=== PATIENT | female | born 2000 | race Hispanic/Latino ===

== ENCOUNTER 2023-03-04 19:26 | Emergency (ER) | payer OTHER ==
--- OUTSIDE RECORDS SUMMARY | 2023-03-04 19:30 | XMS REPORT | Continuity of Care Document ---
:2000 Author Organization [facility] t Address [address] [facility] [address] [place] [address] Care Team Providers Name Role Phone ALFREDITO CASTLE Primary Care Physician Unavailable CATALINA WELLINGTON Attending Clinician Unavailable ELAINA ALEXANDER Attending Clinician Unavailable Catalina Wellington MD Attending Clinician Doctor Unassigned, [place] Attending Clinician Unavailable Lab, Ang - Db Attending Clinician Unavailable Benjamin BATCH OR CONTINUOUS STILL OPERATORElaina Smith Attending Clinician Pob, Adc Lab Main Attending Clinician Unavailable AL RICO Attending Clinician Unavailable Al Rico MD Attending Clinician ELDON GAVIN Attending Clinician Unavailable Eldon Childress Attending Clinician Wesley Smith Attending Clinician RAFAELA WEN Attending Clinician Unavailable CATALINA WELLINGTON Admitting Clinician Unavailable ELDON GAVIN Admitting Clinician Unavailable Payers Payer Name Policy Type Policy Number Effective Date Expiration Date [facility] [id number] 2014 CHOICE [place] STAR 00:00:00 Problems Condition Condition Condition Status Onset Resolution Last Treating Co mments Source Name Details Category Date Date Treatment Clinician Date Chronic Chronic Disease Active Univers migraine migraine 9-13 ity of without without 00:00: [place] aura with aura with 00 Medi lois status status Branch migrainosu migrainosu s, not s, not intractabl intractabl e e Paresthesi Paresthesi Disease Active U nivers a a 9-13 ity of 00:00: [place] [facility] Elevated Elevated Disease Active Unive rs blood blood - ity of pressure pressure 00:00: [place] reading in reading in 00 Mt dical office office Branch without without diagnosis diagnosis of of hypertensi hypertensi on on Encounter Encounter Disease Active Uni vers to to 02-04 [place] of establish establish [place] Irregular Irregular Disease Active Uni vers menstrual menstrual 7-21 ity of cycle cycle 00:00: [place] 00 Medical Branch Left ankle Left ankle Disease Active 2014-05 U nickie pain pain 0-20 ity of 00:00: [place] [facility] Obesity Obesity Problem Active 2018-12-12 Me moria (disorder) (disorder) 22:40:44 l Active Lars Problem 12/12/2018 Medical Group Allergies, Adverse Reactions, Alerts Allergy Allergy Status Severity Reaction(s) Onset Inactive Treating Comm ents Source Name Type Date Date Clinician NO KNOWN Drug Active Univers ALLERGIE Class ity of S [facility] Social History Social Habit Start Date Stop Date Quantity Comments Source Gender identity Universit y of [facility] Sexual orientation Univer sity of [facility] Alcohol intake 2023-02-19 2023-02-19 Current drinker Unive rsity of 00:00:00 00:00:00 of alcohol [facility] (finding) Branch History of Social 2023-02-04 2023-02-04 Univers ity of function 00:00:00 00:00:00 [facility] Alcohol Comment 2022-12-12 2022-12-12 social Universit y of 00:00:00 00:00:00 [facility] Exposure to 2022-07-21 2022-07-31 Not sure University of SARS-CoV-2 (event) 00:00:00 21:50:00 [facility] Sex Assigned At [birth year] Universit y of 00:00:00 00:00:00 [facility] Smoking Status Start Date Stop Date Source Social History [facility] Medications Ordered Filled Start Stop Current Ordering Indication Dosage Frequency Signature Comments Components Source Medication Medication Date Date Medication? Clinician (SIG) Name Name rizatriptan 3-0 Yes [id number] 5mg Take 1 Univers 5 mg 9-13 tablet by ity of disintegrat 00:00[place] 00 needed for Med ical Migraine Branch (take one on onset of headache may repeat 1 dose 2 hrs later). May repeat in 2 hours if needed rizatriptan 2023-0 Yes [id number] 5mg Take 1 Univers 5 mg 9-13 tablet by ity of disintegrat [place] 00 needed for Med ical Migraine Branch (take one on onset of headache may repeat 1 dose 2 hrs later). May repeat in 2 hours if needed rizatriptan 3-0 Yes [id number] 5mg Take 1 Univers 5 mg 9-13 tablet by ity of disintegrat 00:00[place] 00 needed for Med ical Migraine Branch (take one on onset of headache may repeat 1 dose 2 hrs later). May repeat in 2 hours if needed rizatriptan 3-0 Yes [id number] 5mg Take 1 Univers 5 mg 9-13 tablet by ity of disintegrat 00:00[place] 00 needed for Med ical Migraine Branch (take one on onset of headache may repeat 1 dose 2 hrs later). May repeat in 2 hours if needed rizatriptan 3-0 Yes [id number] 5mg Take 1 Univers 5 mg 9-13 tablet by ity of disintegrat 00:00: [place] 00 needed for Med ical Migraine Branch (take one on onset of headache may repeat 1 dose 2 hrs later). May repeat in 2 hours if needed rizatriptan 3-0 Yes [id number] 5mg Take 1 Univers 5 mg 9-13 tablet by ity of disintegrat 00:00[place] 00 needed for Med ical Migraine Branch (take one on onset of headache may repeat 1 dose 2 hrs later). May repeat in 2 hours if needed medroxyPROG 3-0 2023- No [id number] 150mg Univers ESTERone 01-0918 ity of (DEPO-PROVE 18:45: 17:49 [facility]) 00 :00 Medical injection Branch 150 mg medroxyPROG 2022-0 3- No [id number] 150mg 150 mg, Univers ESTERone 818 08-18 Intramuscu ity of (DEPO-PROVE 18:45: 17:49 lar, ONCE, [place] RA) 00 :00 1 dose, On Medical injection Fri Branch 150 mg 01/09/23 at 1345, Routine medroxyPROG 2023-0 3- No [id number] 150mg Univers ESTERone 01-09 08-18 ity of (DEPO-PROVE 18:45: 17:49 [place] RA) 00 :00 Medical injection Branch 150 mg medroxyPROG 2023-0 3- No [id number] 150mg 150 mg, Univers ESTERone 8-18 Intramuscu ity of (DEPO-PROVE 18:45: 17:49 lar, ONCE, [place] RA) 00 :00 1 dose, On Medical injection Fri Branch 150 mg 01/09/23 at 1345, Routine miSOPROStoL 2022-0 Yes [id number] 200ug Take 1 Univers 200 mcg 8-18 tablet by ity of tablet 00:00: mouth SEE-INSTRU Medical CTIONS. Branch Take one tab the night before and one tab the morning of procedure miSOPROStoL 2022-0 Yes [id number] 200ug Take 1 Univers 200 mcg 8-18 tablet by ity of tablet 00:00: SEE-INSTRU Medical CTIONS. Branch Take one tab the night before and one tab the morning of procedure miSOPROStoL 3-0 Yes [id number] 200ug Take 1 Univers 200 mcg 8-18 tablet by ity of tablet 00:00: SEE-INSTRU Medical CTIONS. Branch Take one tab the night before and one tab the morning of procedure miSOPROStoL 3-0 Yes [id number] 200ug Take 1 Univers 200 mcg 8-18 tablet by ity of tablet 00:00: SEE-INSTRU Medical CTIONS. Branch Take one tab the night before and one tab the morning of procedure miSOPROStoL 3-0 Yes [id number] 200ug Take 1 Univers 200 mcg 8-18 tablet by ity of tablet 00:00: mouth SEE-INSTRU Medical CTIONS. Branch Take one tab the night before and one tab the morning of procedure miSOPROStoL 3-0 Yes [id number] 200ug Take 1 Univers 200 mcg 8-18 tablet by ity of tablet 00:00: mouth [place] 00 SEE-INSTRU Medical CTIONS. Branch Take one tab the night before and one tab the morning of procedure miSOPROStoL 2022- No [id number] 200ug Take 1 Univers 200 mcg 8-18 09-28 tablet by ity of tablet 00:00: 00:00 mouth [place] 00 :00 SEE-INSTRU Medical CTIONS. Branch Take one tab the night before and one tab the morning of procedure miSOPROStoL 2022- No [id number] 200ug Take 1 Univers 200 mcg 8-18 -28 tablet by ity of tablet 00:00: 00:00 mouth [place] 00 :00 SEE-INSTRU Medical CTIONS. Branch Take one tab the night before and one tab the morning of procedure SUMAtriptan 2022- No 50mg Take 1 Uni vers 50 mg 7-21 07-21 tablet by ity of tablet 09:57: 00:00 mouth [place] 31 :00 now. Medical Branch SUMAtriptan 2022- No 50mg Take 1 Uni vers 50 mg 7-21 -21 tablet by ity of tablet 09:57: 00:00 mouth [place] 31 :[place] now. Medical Branch acetaminoph 2022- No 650mg 650 mg, U nivers en 08-01-10 Oral, ity of (TYLENOL) 06:00: 06:00 ONCE, 1 [place] tablet 650 00 :00 dose, On Medic al mg Fri Branch 08/01/22 at 0000, ELROY NaCl 0.9% No 1000mL at 999 Uni vers (NS) bolus 08-01-10 mL/hr, ity of infusion 04:30: 06:04 1,000 mL, Evan as 1,000 mL 00 :00 IV Medical Infusion, Branch ONCE, 1 dose, On [facility] 07/31/22 at 2230, STAT metoclopram No 10mg 10 mg, Uni vers cortez HCl 08-01 03-10 Slow IV ity of (REGLAN) 04:30: 04:31 Push, [place] injection 00 :00 ONCE, 1 Medical 10 mg dose, On Branch [facility] 07/31/22 at 2230, ELROY ondansetron 2022-0 Yes [id number] 4mg Take 1 Univers 4 mg 3-09 tablet by ity of disintegrat 00:00: mouth [place] ing tablet 00 every 8 Medica l (eight) Branch hours as needed for Nausea and Vomiting (N/V). ondansetron 2022-0 Yes [id number] 4mg Take 1 Univers 4 mg 3-09 tablet by ity of disintegrat 00:00: mouth [place] ing tablet 00 every 8 Medica l (eight) Branch hours as needed for Nausea and Vomiting (N/V). ondansetron 2022-0 2022- No [id number] 4mg Take 1 Univers 4 mg 3-01 29-21 tablet by ity of disintegrat 00:00: 00:00 [place] ing tablet 00 :00 every 8 Medica l (eight) Branch hours as needed for Nausea and Vomiting (N/V). ondansetron 2022-0 2022- No [id number] 4mg Take 1 Univers 4 mg 3-01 29- tablet by ity of disintegrat 00:00: 00:00 [place] ing tablet 00 :00 every 8 Medica l (eight) Branch hours as needed for Nausea and Vomiting (N/V). ketorolac 2021- No 15mg 15 mg, Unive rs (TORADOL) 10-02 Slow IV ity of injection 22:30: 21:29 Push, [place] 15 mg 00 :00 ONCE, 1 Medical dose, On Branch Thu10/02/21 at 1730, [facility] : ELDON GAVIN naproxen 0 Yes [id number] 500mg Take 1 Un unique 500 mg 5-11 tablet by ity of tablet 00:00: mouth 2 (two) Medical times Branch daily with meals. naproxen 2021-0 Yes [id number] 500mg Take 1 Un unique 500 mg 5-11 tablet by ity of tablet 00:00: mouth 2 (two) Medical times Branch daily with meals. naproxen 2021-0 Yes [id number] 500mg Take 1 Un unique 500 mg 5-11 tablet by ity of tablet 00:00: mouth 2 [place] (two) Medical times Branch daily with meals. naproxen 2022- No [id number] 500mg Take 1 U nivers 500 mg 10-02 tablet by ity of tablet 00:00: 00:00 mouth 2 [place] 00 :00 (two) Medical times Branch daily with meals. naproxen 2022- No [id number] 500mg Take 1 U nivers 500 mg 5-03 31-21 tablet by ity of tablet 00:00: 00:00 mouth 2 [place] 00 :00 (two) Medical times Branch daily with meals. SUMAtriptan Yes 50mg Take 50 mg Univers 50 mg 1-05 by mouth ity of tablet 09:29: once now. [place] [address] Medical Branch SUMAtriptan Yes 50mg Take 50 mg Univers 50 mg 1-05 by mouth ity of tablet 09:29: once now. [place] [address] Medical Branch SUMAtriptan Yes 50mg Take 50 mg Univers 50 mg 1-05 by mouth ity of tablet 09:29: once now. [address] SUMAtriptan Yes 50mg Take 50 mg Univers 50 mg 1-05 by mouth ity of tablet 09:29: once now. [address] Branch RELPAX 40 Yes Take 1 Univer s mg tablet 9-20 tablet by ity o f 00:00: mouth as [place] 00 needed Medical (Severe Branch headache). May repeat in 2 hours if necessary. Max 2 doses per day, 4 doses per week RELPAX 40 Yes Take 1 Univer s mg tablet 9-20 tablet by ity o f 00:00: mouth as [place] 00 needed Medical (Severe Branch headache). May repeat in 2 hours if necessary. Max 2 doses per day, 4 doses per week RELPAX 40 Yes Take 1 Univer s mg tablet 9-20 tablet by ity o f 00:00: mouth as [place] 00 needed Medical (Severe Branch headache). May repeat in 2 hours if necessary. Max 2 doses per day, 4 doses per week RELPAX 40 Yes Take 1 Univer s mg tablet 9-20 tablet by ity o f 00:00: mouth as [place] 00 needed Medical (Severe Branch headache). May repeat in 2 hours if necessary. Max 2 doses per day, 4 doses per week RELPAX 40 2022- No Take 1 Unive rs mg tablet 02-11-21 tablet by ity of 00:00: 00:00 mouth as [place] 00 :00 needed Medical (Severe Branch headache). May repeat in 2 hours if necessary. Max 2 doses per day, 4 doses per week RELPAX 40 2022- No Take 1 Unive rs mg tablet 02-11-21 tablet by ity of 00:00: 00:00 mouth as [place] 00 :00 needed Medical (Severe Branch headache). May repeat in 2 hours if necessary. Max 2 doses per day, 4 doses per week topiramate Yes [id number] 50mg Take 1 Univers 50 mg 5-19 tablet by ity of tablet 00:00: mouth 2 [place] 00 (two) Medical times Branch daily. topiramate Yes [id number] 50mg Take 1 Univers 50 mg 5-19 tablet by ity of tablet 00:00: mouth 2 [place] 00 (two) Medical times Branch daily. topiramate Yes [id number] 50mg Take 1 Univers 50 mg 5-19 tablet by ity of tablet 00:00: mouth 2 [place] 00 (two) Medical times Branch daily. topiramate Yes [id number] 50mg Take 1 Univers 50 mg 5-19 tablet by ity of tablet 00:00: mouth 2 [place] 00 (two) Medical times Branch daily. topiramate 2022- No [id number] 50mg Take 1 Univers 50 mg 5-19 07-21 tablet by ity of tablet 00:00: 00:00 mouth 2 [place] 00 :00 (two) Medical times Branch daily. topiramate 2022- No [id number] 50mg Take 1 Univers 50 mg 5-19 07-21 tablet by ity of tablet 00:00: 00:00 mouth 2 [place] 00 :00 (two) Medical times Branch daily. Vital Signs Vital Name Observation Time Observation Value Comments Source Systolic blood 2023-02-19 14:25:00 117 mm[Hg] Univer sity of pressure [facility] Diastolic blood 2023-02-19 14:25:00 78 mm[Hg] Unive rsity of pressure [facility] Heart rate 2023-02-19 14:24:00 88 /min Universi ty of [facility] Body temperature 2023-02-19 14:24:00 36.83 Shelli Univ ersity of [place] [facility] Body height 2023-02-19 14:24:00 160 cm Universi ty of [place] [facility] Body weight 2023-02-19 14:24:00 133.72 kg Universi ty of [place] [facility] BMI 2023-02-19 14:24:00 52.22 kg/m2 Universi ty of [place] [facility] Systolic blood 2023-02-04 15:17:00 128 mm[Hg] Univer sity of pressure [place] [facility] Diastolic blood 2023-02-04 15:17:00 83 mm[Hg] Unive rsity of pressure [place] [facility] Body height 2023-02-04 15:17:00 160 cm Universi ty of [place] [facility] Body weight 2023-02-04 15:17:00 133.811 kg Universi ty of [place] [facility] BMI 2023-02-04 15:17:00 52.26 kg/m2 Universi ty of [place] [facility] Oxygen saturation in 2023-02-04 15:17:00 98 /min University of Arterial blood by [place] [employer] lois Pulse oximetry Branch Systolic blood 2023-01-09 17:28:00 142 mm[Hg] Univer sity of pressure [place] [facility] Diastolic blood 2023-01-09 17:28:00 87 mm[Hg] Unive rsity of pressure [place] [facility] Heart rate 2023-01-09 17:27:00 68 /min Universi ty of [place] [facility] Body temperature 2023-01-09 17:27:00 37.06 Shelli Univ ersity of [place] [facility] Respiratory rate 2023-01-09 17:27:00 16 /min Univ ersity of [place] [facility] Body height 2023-01-09 17:27:00 160 cm Universi ty of [place] [facility] Body weight 2023-01-09 17:27:00 133.72 kg Universi ty of [place] [facility] BMI 2023-01-09 17:27:00 52.22 kg/m2 Universi ty of [place] [facility] Oxygen saturation in 2023-01-09 17:27:00 98 /min University of Arterial blood by [employer] lois Pulse oximetry Branch Systolic blood 2022-12-12 14:21:00 145 mm[Hg] Univer sity of pressure [place] [facility] Diastolic blood 2022-12-12 14:21:00 85 mm[Hg] Unive rsity of pressure [place] [facility] Heart rate 2022-12-12 14:16:00 73 /min Universi ty of [place] [facility] Body temperature 2022-12-12 14:16:00 36.67 Shelli Univ ersity of [place] [facility] Respiratory rate 2022-12-12 14:16:00 18 /min Univ ersity of [place] [facility] Body height 2022-12-12 14:16:00 160 cm Universi ty of [place] [facility] Body weight 2022-12-12 14:16:00 133.72 kg Universi ty of [place] [facility] BMI 2022-12-12 14:16:00 52.22 kg/m2 Universi ty of [place] [facility] Oxygen saturation in 2022-12-12 14:16:00 98 /min University of Arterial blood by [facility] Pulse oximetry Branch Systolic blood 2022-08-01 06:04:00 152 mm[Hg] Univer sity of pressure [place] [facility] [place] Diastolic blood 2022-08-01 06:04:00 110 mm[Hg] Unive rsity of pressure [place] [facility] Heart rate 2022-08-01 06:04:00 98 /min Universi ty of [place] [facility] Respiratory rate 2022-08-01 06:04:00 20 /min Univ ersity of [place] [facility] Oxygen saturation in 2022-08-01 06:04:00 98 /min University of Arterial blood by [facility] Pulse oximetry Branch Body temperature 2022-08-01 03:51:00 37.39 Shelli Univ ersity of [place] [facility] Body height 2022-08-01 03:51:00 160 cm Universi ty of [place] [facility] Body weight 2022-08-01 03:51:00 129.729 kg Universi ty of [place] [facility] BMI 2022-08-01 03:51:00 50.66 kg/m2 Universi ty of [place] [facility] Heart rate 2021-10-02 20:45:00 100 /min Universi ty of [place] [facility] Body temperature 2021-10-02 20:45:00 37.17 Shelli Univ ersity of [place] [facility] Respiratory rate 2021-10-02 20:45:00 18 /min Univ ersity of [place] [facility] Body weight 2021-10-02 20:45:00 108.41 kg [facility] Oxygen saturation in 2021-10-02 20:45:00 99 /min [facility] blood by [facility] Pulse oximetry Branch BMI Calculated 2018-11-30 19:18:00 Nakul Ferrera Weight 2018-11-30 19:18:00 Felisha Sousa Height 2018-11-30 19:18:00 161.29 cm [facility] Procedures Procedure Date / Time Performing Clinician Source Performed DISCLOSURE AND CONSENT 2023-02-19 05:01:00 Doctor Unassigned, No [facility] MEDICAL & SURGICAL Name [facility] h PROCEDURES - FEMALM POCT TEST 2023-02-19 00:00:00 Catalina Wellington [facility] US PELVIS COMPLETE WITH 2023-01-12 18:39:54 Catalina Wellington [facility] TRANSVAGINAL [facility] POCT TEST 2023-01-09 00:00:00 Catalina Wellington [facility] ASSIGNMENT OF BENEFITS 2022-12-12 14:04:16 Doctor Unassigned, No [facility] POCT TEST 2022-08-01 05:56:00 Al Rico [facility] LIPASE 2022-08-01 04:25:[address] [facility] COMP. METABOLIC PANEL 2022-08-01 04:25:00 Al Rico [facility] ([id number]) Medical [place] CBC WITH DIFF 2022-08-01 04:25:[address] [facility] URINALYSIS 2022-08-01 04:25:[address] [facility] CONSENT/REFUSAL FOR 2022-08-01 03:37:54 Doctor Unassigned, No [facility] DIAGNOSIS AND TREATMENT Name [facility] CT ABDOMEN PELVIS WO 2021-10-02 21:46:48 Eldon Gavin [facility] COMP. METABOLIC PANEL 2021-10-02 21:29:00 Eldon Gavin [facility] ([id number]) Medical [place] CBC WITH DIFF 2021-10-02 21:29:[address] [facility] POCT TEST 2021-10-02 20:52:00 Khang Greco ty of [facility] URINALYSIS 2021-10-02 20:51:00 Khang Greco o [facility] CONSENT/REFUSAL FOR 2021-10-02 20:38:16 Doctor Unassigned, No Un [facility] DIAGNOSIS AND TREATMENT Name Medical [place] Encounters Start End Encounter Admission Attending Care Care Encounter Source Date/Time Date/Time Type Type Clinicians Facility Department ID 2023-04-03 2023-04-03 Outpatient R [facility] [id number] Univers 14:00:00 14:00:00 ity of [facility] 2023-02-19 2023-02-19 Outpatient R CATALINA WELLINGTON [facility] [id number] Univers 09:00:00 09:45:32 ity of [facility] 2023-02-19 2023-02-19 Office Catalina Wellington [facility] [id number] Univers 09:00:00 09:45:32 Visit Darren HUNT 350.1.13.10 i ty [facility] 4.2.7.2.[place] PROFESS[place] [id number] Mt dicevangelist PARDO [address] Branch BUILDING 2023-02-19 2023-02-19 Orders Doctor GAVINO 1.2.840.114 [id number] Univers 00:00:00 00:00:00 Only Unassigned, KARL 350.1.13.10 ity of [place] [facility] 4.2.7.2.686 Evan as [id number] [address] 2023-02-04 2023-02-04 [employer] Lab, Ang - [facility] [id number] Univers 11:00:00 11:15:00 Visit Elaina Alexander 350.1.13.10 ity of [place] 4.2.7.2.686 Evan as GINA?BLEA [id number] Mt dical MASOUDEY [address] [place] MEDICAL OFFICE BUILDING 2023-02-04 2023-02-04 Outpatient R BENJAMIN [facility] [id number] Univers 10:00:00 10:38:16 ELAINA ity [facility] 2023-02-04 2023-02-04 Office Benjamin [facility] 1.2.840.114 [id number] Univers 10:00:00 10:38:16 Visit Elaina ESPINOZA 350.1.13.10 it [facility] 4.2.7.2.686 Evan as GINA?BLEA [id number] Mt dical KNEY [address] [place] MEDICAL OFFICE BUILDING 2023-01-12 2023-01-12 Outpatient R CATALINA WELLINGTON [facility] [id number] Univers 13:03:33 23:59:00 ity of [facility] 2023-01-12 2023-01-12 Hospital Vito [facility] 1.2.840.114 [id number] Univers 13:03:33 23:59:00 Encounter Darren HUNT 350.1.13.10 ity of [place] 4.2.7.2.686 [place] [id number] [facility] [address] [place] 2023-01-09 2023-01-09 Outpatient R CATALINA WELLINGTON [facility] [id number] Univers 12:30:00 12:58:41 ity of [facility] 2023-01-09 2023-01-09 Office Vito [facility] 1.2.840.114 [id number] Univers 12:30:00 12:58:41 Visit Darren VANCE 350.1.13.10 it y of [place] 4[place]2.7.2.686 [place] HE[place] [id number] [facility] 134 Branch 2022-12-17 2022-12-17 Patient Doctor GAVINO 1.2.840.114 [id number] Univers 00:00:00 00:00:00 Secure Msg Unassigned, KARL 350.1.13.10 ity of [place] [facility] 4.2.7.2.686 Evan as [id number] [facility] 019 Branch 2022-12-12 2022-12-12 [employer] Lana, Yomi Lab Main [facility] [id number] [id number] Univers 11:30:00 11:45:00 Visit Catalina Wellington 350.1.13.10 ity of [facility] 4.2.7.2.[place] [id number] Mt dical NAL [address] [facility] 2022-12-12 2022-12-12 Outpatient R CATALINA WELLINGTON [facility] [id number] Univers 11:30:00 11:30:00 ity of [facility] 2022-12-12 2022-12-12 Office Catalina Wellington [facility] 1.2.840.114 [id number] Univers 09:00:00 09:46:05 Visit Darren VANCE 350.1.13.10 it y of WOMEN'S 4.2.7.2.686 [facility] [id number] [facility] 134 Branch 2022-12-12 2022-12-12 Orders Doctor GAVINO 1.2.840.114 [id number] Univers 00:00:00 00:00:00 Only Unassigned, KARL 350.1.13.10 ity of [place] [facility] 4.2.7.2.686 Evan [id number] [facility] 009 Branch 2022-07-31 2022-08-01 Emergency [facility] [id number] Univers 21:54:00 00:57:00 AL ity [facility] 2022-07-31 2022-08-01 Emergency [facility] [id number] Univers 21:54:00 00:57:00 Al HUNT 350.1.13.10 i ty of [place] [address] [place] [id number] 2021-10-02 2021-10-02 Emergency X [facility] ERT [id number] Univers 15:48:00 17:43:00 ELDON ity of [facility] 2021-10-02 2021-10-02 Emergency [facility] [id number] Univers 15:48:00 17:43:00 Eldon HUNT 350.1.13.10 i ty of [place] 4.2.7.2.686 [facility] [id number] [address] 2021-10-02 2021-10-02 Orders Doctor MANCIA 1.2.840.114 [id number] Univers 00:00:00 00:00:00 Only Unassigned, KARL 350.1.13.10 ity of [place] [facility] 4.2.7.2.686 Evan as [id number] [address] 2019-05-31 2019-05-31 Outpatient CHAVA IE [id number] Memoria 10:20:00 10:20:00 01 lonnie BoneRamer 2019-05-31 2019-05-31 Outpatient CHAVA LARSEN [id number] Memoria 10:20:00 10:20:00 01 l Ramer 2018-12-10 2018-12-11 Between nullFlavo MG [id number] Memoria 04:29:30 04:29:30 Visit r Gastroenter 01 l ology [facility] [place] [facility] 2018-12-10 2018-12-11 Between nullFlavo MG [id number] Memoria 04:29:30 04:29:30 Visit r Gastroenter 01 l ology Sugar Herm [facility] 2018-12-09 2018-12-10 Outpatient [facility] [id number] 23:29:30 23:29:30 2018-11-30 2018-12-01 Outpatient nullFlavo [facility] [id number] Memoria 19:00:00 04:59:59 r Gastroenter 00 l ology Sugar Herm [facility] 2018-11-30 2018-12-01 Outpatient nullFlavo [facility] [id number] Memoria 19:00:00 04:59:59 r Gastroenter 00 l ology Sugar Herm [facility] 2018-11-30 2018-11-30 Outpatient Luis [facility] [id number] 14:00:00 23:59:59 Wesley 00 Tristan 2018-11-30 2018-11-30 Outpatient [facility] [id number] Memoria 14:00:00 14:00:00 00 lonnie BoneRamer 2017-09-28 2017-09-28 Outpatient Kal WEN [facility] [id number] Univers 09:00:00 09:00:00 RAFAELA alegre [facility] Results Test Description Test Time Test Comments Results Result Comments Source POCT TEST 2023-02-19 14:29:00 Test Item Value Reference Range Interpretation Comme nts POCT PREG (test code = 1605) Negative On board controls acceptable with C Line (test code = 3574) Yes POCT PREG LOT # (test code = 3575) POCT PREG TEST DATE (test code = 3576) [facility] [id number] 14:29:00 Test Item Value Reference Range Interpretation Comments POCT PREG (test code = 1605) Negative On board controls acceptable with C Yes Line (test code = 3574) POCT PREG LOT # (test code = 3575) POCT PREG TEST DATE (test code = 3576) [facility] [id number] 17:30:00 Test Item Value Reference Range Interpretation Comments POCT PREG (test code = 1605) Negative On board controls acceptable with C Yes Line (test code = 3574) POCT PREG LOT # (test code = 3575) POCT PREG TEST DATE (test code = 3576) [facility] [id number] 17:30:00 Test Item Value Reference Range Interpretation Comments POCT PREG (test code = 1605) Negative On board controls acceptable with C Yes Line (test code = 3574) POCT PREG LOT # (test code = 3575) POCT PREG TEST DATE (test code = 3576) [facility] [id number] 05:56:00 Test Item Value Reference Range Interpretation Comments POCT PREG (test code = 1605) negative On board controls acceptable with present C Line (test code = 3574) POCT PREG LOT # (test code = 3575) [id number] POCT PREG TEST DATE (test 10/23/2023 code = 3576) Lab Interpretation (test code = Normal 87850-7) [id number]01 05:00:24 Test Item Value Reference Range Interpretation Comments NA (test code = 138 mmol/L 135-145 3788576074) K (test code = 3.8 mmol/L 3.5-5.0 0243484450) CL (test code = 104 mmol/L 98-108 5661358001) CO2 TOTAL (test code = 26 mmol/L 23-31 4419602744) AGAP (test code = 8 2-16 0291548857) BUN (test code = 7 mg/dL 7-23 9709496455) GLUCOSE (test code = 99 mg/dL 70-110 2212441941) CREATININE (test code = 0.55 mg/dL 0.50-1.04 3721682651) TOTAL BILI (test code = 0.6 mg/dL 0.1-1.3 5326268972) CALCIUM (test code = 8.3 mg/dL 8.6-10.6 L 0703189526) T PROTEIN (test code = 7.5 g/dL 6.3-8.2 3500763995) ALBUMIN (test code = 4.2 g/dL 3.5-5.0 6965154817) ALK PHOS (test code = 87 U/L 34-122 7470934290) ALTv (test code = 28 U/L 5-35 2-6) AST(SGOT) (test code = 24 U/L 13-40 2971307790) eGFR (test code = 140.9 mL/min/1.73m2 8961238825) SNEHA (test code = SNEHA) Association of Glomerular Filtration Rate (GFR) and Staging of Kidney Disease* + --+ --+ ------+| GFR (mL/min/1.73 m2) ?| With Kidney Damage ?| ?Without Kidney Damage+ --------+ --------+ +| ?>90 ?| ?Stage one ?| ? Normal ?+ ---+ ---+ -------+| ?60-89 ?| ?Stage two ?| ? Decreased GFR ? + --+ --+ ------+| ?30-59 ?| ?Stage three ?| ? Stage three ? + --+ --+ ------+| ?15-29 ?| ?Stage four ? | ? Stage four ?+ ---+ ---+ -------+| ?<15 (or dialysis) ? ?| ?Stage five ? | ? Stage five ?+ ---+ ---+ -------+ *Each stage assumes the associated GFR level has been in effect for at least three months. ?Stages 1 to 5, with or without kidney disease, indicate chronic kidney disease. Notes: Determination of stages one and two (with eGFR >59mL/min/1.73 m2) requires estimation of kidney damage for at least three months as defined by structural or functional abnormalities of the kidney, manifested by either:Pathological abnormalities or Markers of kidney damage (including abnormalities in the composition of the blood or urine or abnormalities in imaging tests). Lab Interpretation Abnormal (test code = 77218-4) [facility] Test Item Value Reference Range Interpretation Comments LIPASE (test code = 1768140636) 55 U/L 0-220 Lab Interpretation (test code = Normal 60906-1) [facility] [id number] 04:47:39 Test Item Value Reference Range Interpretation Comments WBC (test code = 6.47 See_Comment [Automated 9490-2) message] The sy stem which generated this result transmitted reference range : 4.30 - 11.10 10*3/?L. The reference range was not used to interpret this result as normal/abnormal . RBC (test code = 4.99 See_Comment [Automated 059-8) message] The sy stem which generated this result transmitted reference range : 3.93 - 5.25 10*6/?L. The reference range was not used to interpret this result as normal/abnormal . HGB (test code = 14.3 g/dL 11.6-15.0 718-7) HCT (test code = 42.0 % 35.7-45.2 4544-3) MCV (test code = 84.2 fL 80.6-95.5 787-2) MCH (test code = 28.7 pg 25.9-32.8 785-6) MCHC (test code = 34.0 g/dL 31.6-35.1 786-4) RDW-SD (test code = 40.4 fL 39.0-49.9 85679-3) RDW-CV (test code = 13.3 % 12.0-15.5 788-0) PLT (test code = 348 See_Comment [Automated 777-3) message] The sy stem which generated this result transmitted reference range : 166 - 358 10*3/ ?L. The reference r preeti was not used to interpret this result as normal/abnormal . MPV (test code = 10.2 fL 9.5-12.9 00995-4) NRBC/100 WBC (test 0.0 See_Comment [Automat ed code = 7400315867) message] The system which generated this result transmitted reference range : 0.0 - 10.0 /100 WBCs. The refer ence range was not u sed to interpret th is result as normal/abnormal . NRBC x10^3 (test code See_Comment [Auto mated = 3328994820) message] The s ystem which generated this result transmitted reference range : 10*3/?L. The reference range was not used to interpret this result as normal/abnormal . GRAN MAT (NEUT) % 69.5 % (test code = 770-8) IMM GRAN % (test code 0.20 % = 4268974902) LYMPH % (test code = 22.7 % 736-9) MONO % (test code = 7.0 % 5905-5) EOS % (test code = 0.3 % 713-8) BASO % (test code = 0.3 % 706-2) GRAN MAT x10^3(ANC) 4.50 10*3/uL 1.88-7.09 (test code = 0030704590) IMM GRAN x10^3 (test 0.00-0.06 code = 7068590725) LYMPH x10^3 (test code 1.47 10*3/uL 1.32-3.29 = 731-0) MONO x10^3 (test code 0.45 10*3/uL 0.33-0.92 = 742-7) EOS x10^3 (test code = 0.03-0.39 L 711-2) BASO x10^3 (test code 0.01-0.07 = 704-7) Lab Interpretation Abnormal (test code = 11760-3) [facility] ([id number][facility]2021-10-02 22:05:15 Test Item Value Reference Range Interpretation Comments NA (test code = 140 mmol/L 135-145 2222723034) K (test code = 4.2 mmol/L 3.5-5.0 9462614871) CL (test code = 104 mmol/L 98-108 9802836157) CO2 TOTAL (test code = 27 mmol/L 23-31 7919301858) AGAP (test code = 2-16 7305810101) BUN (test code = 9 mg/dL 7-23 8502034040) GLUCOSE (test code = 89 mg/dL 70-110 1994994228) CREATININE (test code = 0.59 mg/dL 0.50-1.04 8050801529) TOTAL BILI (test code = 0.5 mg/dL 0.1-1.3 6376583235) CALCIUM (test code = 8.7 mg/dL 8.6-10.6 1825630033) T PROTEIN (test code = 7.6 g/dL 6.3-8.2 5695457238) ALBUMIN (test code = 4.4 g/dL 3.5-5.0 7533842575) ALK PHOS (test code = 93 U/L 34-122 8603018232) ALTv (test code = 46 U/L 5-35 H 1741-) AST(SGOT) (test code = 37 U/L 13-40 1445880070) eGFR (test code = mL/min/1.73m2 2971331726) SNEHA (test code = SNEHA) Association of Glomerular Filtration Rate (GFR) and Staging of Kidney Disease* + --+ --+ ------+| GFR (mL/min/1.73 m2) ?| With Kidney Damage ?| ?Without Kidney Damage+ --------+ --------+ +| ?>90 ?| ?Stage one ?| ? Normal ?+ ---+ ---+ -------+| ?60-89 ?| ?Stage two ?| ? Decreased GFR ? + --+ --+ ------+| ?30-59 ?| ?Stage three ?| ? Stage three ? + --+ --+ ------+| ?15-29 ?| ?Stage four ? | ? Stage four ?+ ---+ ---+ -------+| ?<15 (or dialysis) ? ?| ?Stage five ? | ? Stage five ?+ ---+ ---+ -------+ *Each stage assumes the associated GFR level has been in effect for at least three months. ?Stages 1 to 5, with or without kidney disease, indicate chronic kidney disease. Notes: Determination of stages one and two (with eGFR >59mL/min/1.73 m2) requires estimation of kidney damage for at least three months as defined by structural or functional abnormalities of the kidney, manifested by either:Pathological abnormalities or Markers of kidney damage (including abnormalities in the composition of the blood or urine or abnormalities in imaging tests). Lab Interpretation Abnormal (test code = 34255-9) [facility] WITH [id number] 21:48:07 Test Item Value Reference Range Interpretation Comments WBC (test code = See_Comment [Automated 6690-2) message] The sy stem which generated this result transmitted reference range : 4.30 - 11.10 10*3/?L. The reference range was not used to interpret this result as normal/abnormal . RBC (test code = See_Comment [Automated 789-8) message] The sy stem which generated this result transmitted reference range : 3.93 - 5.25 10*6/?L. The reference range was not used to interpret this result as normal/abnormal . HGB (test code = 14.2 g/dL 11.6-15.0 718-7) HCT (test code = 43.0 % 35.7-45.2 4544-3) MCV (test code = 83.8 fL 80.6-95.5 787-2) MCH (test code = 27.7 pg 25.9-32.8 785-6) MCHC (test code = 33.0 g/dL 31.6-35.1 786-4) RDW-SD (test code = 41.0 fL 39.0-49.9 35646-5) RDW-CV (test code = 13.3 % 12.0-15.5 788-0) PLT (test code = See_Comment H [Automated 777-3) message] The sy stem which generated this result transmitted reference range : 166 - 358 10*3/ ?L. The reference r preeti was not used to interpret this result as normal/abnormal . MPV (test code = 10.5 fL 9.5-12.9 84821-9) NRBC/100 WBC (test See_Comment [Automat ed code = 0253199931) message] The system which generated this result transmitted reference range : 0.0 - 10.0 /100 WBCs. The refer ence range was not u sed to interpret th is result as normal/abnormal . NRBC x10^3 (test code <0.01 See_Comment [Auto mated = 8711756341) message] The s ystem which generated this result transmitted reference range : 10*3/?L. The reference range was not used to interpret this result as normal/abnormal . GRAN MAT (NEUT) % 51.7 % (test code = 770-8) IMM GRAN % (test code 0.40 % = 5478835933) LYMPH % (test code = 36.1 % 736-9) MONO % (test code = 9.3 % 5905-5) EOS % (test code = 1.9 % 713-8) BASO % (test code = 0.6 % 706-2) GRAN MAT x10^3(ANC) 4.07 10*3/uL 1.88-7.09 (test code = 0907817072) IMM GRAN x10^3 (test 0.03 10*3/uL 0.00-0.06 code = 6545452869) LYMPH x10^3 (test code 2.84 10*3/uL 1.32-3.29 = 731-0) MONO x10^3 (test code 0.73 10*3/uL 0.33-0.92 = 742-7) EOS x10^3 (test code = 0.15 10*3/uL 0.03-0.39 711-2) BASO x10^3 (test code 0.05 10*3/uL 0.01-0.07 = 704-7) Lab Interpretation Abnormal (test code = 09808-5) [facility] [id number] 20:52:00 Test Item Value Reference Range Interpretation Comments POCT PREG (test code = 1605) negative On board controls acceptable with present C Line (test code = 3574) POCT PREG LOT # (test code = 3575) [id number] POCT PREG TEST DATE (test code = 3576) Lab Interpretation (test code = Normal 99303-8) [facility]"
--- NOTE | 2023-03-04 20:31 | RAD REPORT ---
EXAM DESCRIPTION: RAD - Lumbar Spine 3 Views - 03/04/2023 8:21 pm CLINICAL HISTORY: PAIN Radiculopathy COMPARISON: No comparisons FINDINGS: Vertebral body heights appear maintained. No compression fracture noted. Minimal retrolist hesis and disc thinning L5-S1. No spondylolysis or spondylolisthesis. Subtle dextroscoliosis of the l umbar spine. IMPRESSION: No acute finding demonstrated.
--- NOTE | 2023-03-04 20:31 | RAD REPORT ---
EXAM DESCRIPTION: RAD - Knee Left 3 View - 03/04/2023 8:21 pm CLINICAL HISTORY: PAIN COMPARISON: No comparisons FINDINGS: No acute fracture, dislocation or joint effusion.
--- NOTE | 2023-03-04 20:33 | RAD REPORT ---
EXAM DESCRIPTION: RAD - Foot Left 3 View - 03/04/2023 8:21 pm CLINICAL HISTORY: PAIN COMPARISON: No comparisons FINDINGS: No acute fracture or subluxation is identified. Tiny calcaneal spur posteriorly.
--- NOTE | 2023-03-04 20:47 | ER ---
Nurse's Notes [facility] Name: Susu Jacques Age: 22 yrs Sex: Female : 2000 Arrival Date: 03/04/2023 Time: 19:26 Bed 9 Private MD: Diagnosis: Fall on same level from slipping, tripping and stumbling without subsequent striking against object;Low back pain;Pain in left knee;Pain in left foot Presentation: 03/04 19:32 Chief complaint: Patient states: she slipped and fell on a wet floor this morning. ap3 patient is complaining of pain to her lower back, left leg, left knee, left foot, and left wrist. Coronavirus screen: At this time, the client does not indicate any symptoms associated with coronavirus-19. Ebola Screen: No symptoms or risks identified at this time. Initial Sepsis Screen: Does the patient meet any 2 criteria? No. Patient's initial sepsis screen is negative. Does the patient have a suspected source of infection? No. Patient's initial sepsis screen is negative. Risk Assessment: Do you want to hurt yourself or someone else? Patient reports no desire to harm self or others. Onset of symptoms was March 04, 2023. 19:32 Method Of Arrival: Ambulatory ap3 19:32 Acuity: BRI 4 ap3 Triage Assessment: 19:34 General: Appears in no apparent distress. Behavior is calm, cooperative, appropriate ap3 for age. Pain: Complains of pain in back, left hand and left leg. Neuro: Level of Consciousness is awake, alert, obeys commands, Oriented to person, place, time, situation. Cardiovascular: Patient's skin is warm and dry. Respiratory: Airway is patent Respiratory effort is even, unlabored, Respiratory pattern is regular, symmetrical. 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 - Social history:: Smoking status: Patient denies any tobacco usage or history of. Screenin:34 [place] ED Fall Risk Assessment (Adult) History of falling in the last 3 months, ap3 including since admission Yes- single mechanical fall (1 pt) Confusion or Disorientation No (0 pts) Intoxicated or Sedated No (0 pts) Impaired Gait No (0 pts) Mobility Assist Device Used No (0 pt) Altered Elimination No (0 pt). Abuse screen: Denies threats or abuse. Nutritional screening: No deficits noted. Tuberculosis screening: No symptoms or risk factors identified. Assessment: 19:45 General: Appears uncomfortable, Behavior is calm, cooperative, appropriate for age, iw Reports falling in [employer] today. c/o pain to left knee, left foot, left wrist and lower back pain. Pain: Complains of pain in left leg, left knee and left hand/wrist and lower back Pain does not radiate. Neuro: Level of Consciousness is awake, alert, obeys commands, Oriented to person, place, time, situation, Appropriate for age. Cardiovascular: Capillary refill < 3 seconds Patient's skin is warm and dry. Respiratory: Airway is patent Respiratory effort is even, unlabored, Respiratory pattern is regular, symmetrical. Musculoskeletal: Reports pain in left leg and left hand and back. Injury Description: fall. 19:45 Pain: Pain currently is 7 out of 10 on a pain scale. Quality of pain is described as iw tender, gnawing, Pain began gradually, Is continuous, Alleviated by rest, relaxation, Aggravated by increased activity, weight bearing. Vital Signs: 19:32 Pulse 100; Resp 17; Temp 97.5; Pulse Ox 100% ; Weight 127.01 kg; Pain 7/10; ap3 19:35 BP 157 / 83; ap3 20:56 BP 148 / 74; Pulse 93; Resp 16; Pulse Ox 100% on R/A; iw 19:32 Pain Scale: Adult ap3 ED Course: 19:30 Patient arrived in ED. gm2 19:31 Cristine Hernandez FNP-C is [facility]. kb 19:31 Kimo Chavez MD is Attending Physician. kb 19:34 Triage completed. ap3 19:35 Arm band placed on right wrist. ap3 19:45 Audelia Cesar, RN is Primary Nurse. iw 19:45 Patient has correct armband on for positive identification. Bed in low position. Call iw light in reach. Side rails up X 1. Provided Education on: POC. Verbalized understanding. . 19:45 No provider procedures requiring assistance completed. iw 20:23 Foot Left 3 View XRAY In Process Unspecified. EDMS 20:23 Knee Left 3 View XRAY In Process Unspecified. EDMS 20:23 Lumbar Spine (3 Views) XRAY In Process Unspecified. EDMS 20:58 Patient did not have IV access during this emergency room visit. iw Administered Medications: No medications were administered Medication: 19:45 VIS not applicable for this client. iw Outcome: 20:46 Discharge ordered by . jimenez 20:57 Discharged to home ambulatory, with friend, iw 20:57 Condition: stable 20:57 Discharge instructions given to patient, friend, Instructed on discharge instructions, follow up and referral plans. Demonstrated understanding of instructions, follow-up care, 20:59 Patient left the ED. iw Signatures: Dispatcher [employer] EDMS Cristine Hernandez, MIXER MACHINE FEEDER-C MIXER MACHINE FEEDER-Audelia Finnegan, RN RN Brittany Craig RN RN Kaylee Shea [facility]
--- NOTE | 2023-03-04 20:47 | EDPHYS ---
Physician Documentation [facility] Name: Susu Jacques Age: 22 yrs Sex: Female : 2000 Arrival Date: 03/04/2023 Time: 19:26 Bed 9 Private MD: ED Physician Kimo Chavez HPI: 03/04 21:04 This 22 yrs old Female presents to ER via Ambulatory with complaints of Leg kb Pain, Back Pain, Fall Injury, Foot Pain. 21:04 Details of fall: The patient fell from an upright position. Onset: The symptoms/episode kb began/occurred this morning. Associated injuries: The patient sustained injury to the low back, pain, left foot, painful injury, left knee, painful injury, left wrist, painful injury. Severity of symptoms: At their worst the symptoms were moderate, in the emergency department the symptoms are unchanged. The patient has not experienced similar symptoms in the past. The patient has not recently seen a physician. Pt reports she slipped and fell this morning. c/o pain to left wrist, knee and foot, as well as low back. . 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 - Social history:: Smoking status: Patient denies any tobacco usage or history of. ROS: 21:03 Constitutional: Negative for fever, chills, and weight loss, kb 21:03 Back: Positive for of the lumbar area, 21:03 MS/extremity: Positive for pain, of the left knee and dorsum of left foot, 21:03 All other systems are negative, Exam: 21:03 Constitutional: This is a well developed, well nourished patient who is awake, alert, kb and in no acute distress. Head/Face: Normocephalic, atraumatic. ENT: Moist Mucous membranes Cardiovascular: Regular rate Respiratory: Respirations even and unlabored. No increased work of breathing. Talking in full sentences Abdomen/GI: Soft, non-tender. No distention Back: No spinal tenderness. No costovertebral tenderness. Full range of motion. Skin: Warm, dry with normal turgor. Normal color. MS/ Extremity: Pulses equal, no cyanosis. Neurovascular intact. Full, normal range of motion. Neuro: Awake and alert, GCS 15, oriented to person, place, time, and situation. Moves all extremities. Normal gait. Vital Signs: 19:32 Pulse 100; Resp 17; Temp 97.5; Pulse Ox 100% ; Weight 127.01 kg; Pain 7/10; ap3 19:35 BP 157 / 83; ap3 20:56 BP 148 / 74; Pulse 93; Resp 16; Pulse Ox 100% on R/A; iw 19:32 Pain Scale: Adult ap3 MDM: 19:31 Patient medically screened. kb 21:03 Differential diagnosis: fracture, contusion, strain. Data reviewed: vital signs, nurses kb notes. Counseling: I had a detailed discussion with the patient and/or guardian regarding the historical points, exam findings, and any diagnostic results supporting the discharge/admit diagnosis, radiology results, the need for outpatient follow up, a family practitioner, to return to the emergency department if symptoms worsen or persist or if there are any questions or concerns that arise at home. 03/04 19:34 Order name: Foot Left 3 View XRAY; Complete Time: 20:46 kb 03/04 19:34 Order name: Knee Left 3 View XRAY; Complete Time: 20:46 kb 03/04 19:34 Order name: Lumbar Spine (3 Views) XRAY; Complete Time: 20:46 kb Administered Medications: No medications were administered Disposition Summary: 03/04/23 20:46 Discharge Ordered Notes: Location: Home kb Condition: Stable kb Diagnosis - Fall on same level from slipping, tripping and stumbling without subsequent kb striking against object - Low back pain kb - Pain in left knee kb - Pain in left foot kb Followup: kb - With: Emergency Department - When: As needed - Reason: Worsening of condition Followup: kb - With: Private Physician - When: 2 - 3 days - Reason: Recheck today's complaints, Continuance of care, Re-evaluation by your physician Discharge Instructions: - Discharge Summary Sheet kb - Musculoskeletal Pain kb Forms: - Medication Reconciliation Form kb - Thank You Letter kb - Antibiotic Education kb - Prescription Opioid Use kb - Patient Portal Instructions kb - Leadership Thank You Letter kb Signatures: Dispatcher [employer] EDCristine Morataya FNP-C VISUAL MANAGER-Ckb Brittany Snow, RN RN ap3
[2023-03-04 21:30] VITALS: TEMP 97.5; O2SAT 100
[2023-03-04 21:32] VITALS: BP 148/74
== END 2023-03-04 20:59 | disposition home or self-care (01) ==
LOC: ER 19:26
DX: M54.50 Low back pain, unspecified (principal); M25.562 Pain in left knee; M79.672 Pain in left foot; W01.0XXA Fall on same level from slipping, tripping and stumbling without subsequent striking against object, initial encounter
CPT/HCPCS: 72100

== ENCOUNTER 2024-01-29 08:25 | Emergency (ER) | payer OTHER, SELFPAY ==
[2024-01-29] MEDS ORDERED: ACETAMINOPHEN 325 MG TABLET ONE (08:45)
[2024-01-29 09:05] LABS: SARS-CoV-2 Antigen CONTROL BLUE LINE VIS/BG OK
[2024-01-29 09:07] LABS: SARS-CoV-2 Antigen Rapid Res Positive (Negative)
--- NOTE | 2024-01-29 10:19 | ER ---
Nurse's Notes [facility] Name: Susu Jaqcues Age: 23 yrs Sex: Female : 2000 Arrival Date: 01/29/2024 Time: 08:25 Bed 14 Private MD: Diagnosis: Acute upper respiratory infection, unspecified;Pneumonia due to SARS-associated coronavirus Presentation: 01/28 08:32 Chief complaint: Headache, body aches, chills, sinus congestion, sore throat, and right hb ear pain x 2 days. Coronavirus screen: Client presents with at least one sign or symptom that may indicate coronavirus-19. Provider contacted for isolation considerations. Ebola Screen: No symptoms or risks identified at this time. Initial Sepsis Screen: Does the patient meet any 2 criteria? No. Patient's initial sepsis screen is negative. Does the patient have a suspected source of infection? No. Patient's initial sepsis screen is negative. Risk Assessment: Do you want to hurt yourself or someone else? Patient reports no desire to harm self or others. Onset of symptoms was January 28, 2024. 08:32 Method Of Arrival: Ambulatory hb 08:32 Acuity: BRI 4 hb Triage Assessment: 08:42 General: Appears in no apparent distress. Behavior is calm, cooperative. Pain: Pain hb currently is 5 out of 10 on a pain scale. EENT: Reports nasal congestion pain since right ear, sore throat. Neuro: Level of Consciousness is awake, alert, obeys commands, Oriented to person, place, time, situation. Cardiovascular: Patient's skin is warm and dry. Respiratory: Respiratory effort is even, unlabored, Respiratory pattern is regular, symmetrical. Musculoskeletal: Reports body aches. 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 - Infectious Disease History:: Denies. - Social history:: Smoking status: Patient denies any tobacco usage or history of. - Family history:: not pertinent. Screenin:44 [facility] ED Fall Risk Assessment (Adult) History of falling in the last 3 months, hb including since admission No falls in past 3 months (0 pts) Confusion or Disorientation No (0 pts) Intoxicated or Sedated No (0 pts) Impaired Gait No (0 pts) Mobility Assist Device Used No (0 pt) Altered Elimination No (0 pt) Score/Fall Risk Level 0 - 2 = Low Risk Oriented to surroundings, Maintained a safe environment, Educated pt \T\ family on fall prevention, incl call for assistance when getting out of bed. Abuse screen: Denies threats or abuse. Denies injuries from another. Nutritional screening: No deficits noted. Tuberculosis screening: No symptoms or risk factors identified. Assessment: 08:44 General: See triage assessment . hb 10:15 Reassessment: Patient appears in no apparent distress at this time. Patient and/or kj2 family updated on plan of care and expected duration. Pain level reassessed. Patient is alert, oriented x 3, equal unlabored respirations, skin warm/dry/pink. Vital Signs: 08:32 BP 179 / 95; Pulse 88; Resp 16; Temp 98.2(O); Pulse Ox 100% on R/A; Weight 131.54 kg; hb Height 5 ft. 3 in. ; Pain 5/10; 10:46 BP 146 / 92; Pulse 80; Resp 18; Temp 98; Pulse Ox 97% on R/A; kj2 08:32 Body Mass Index 51.37 (131.54 kg, 160.02 cm) hb 08:32 Pain Scale: Adult hb ED Course: 08:27 Patient arrived in ED. mr 08:28 Andrew Roe MD is Attending Physician. rashawn 08:31 Dania Ling, RN is Primary Nurse. hb 08:42 Triage completed. hb 08:42 Arm band placed on. hb 08:44 Patient has correct armband on for positive identification. Provided Education on: use hb of call light, bathroom location . 08:44 No provider procedures requiring assistance completed. Patient did not have IV access hb during this emergency room visit. 08:54 Strep Sent. hb 08:54 SARS RAPID Sent. hb 08:54 Flu Sent. hb 08:54 COVID swab sent to lab. Flu and/or RSV swab sent to lab. Strep swab sent to lab. hb 10:22 Test, Urine Sent. kj2 10:22 PREGU Sent. kj2 10:22 Urinalysis w/ reflexes Sent. kj2 Administered Medications: 08:40 Drug: Acetaminophen PO 650 mg PO once Route: PO; 10:15 Follow up: Response: No adverse reaction; Pain is decreased kj2 10:44 Drug: AZITHromycin PO 500 mg PO once Route: PO; kj2 10:44 Follow up: Response: No adverse reaction; Medication administered at discharge. kj2 10:44 Drug: Famotidine PO 40 mg PO once Route: PO; kj2 10:44 Follow up: Response: No adverse reaction; Medication administered at discharge. kj2 Medication: 08:44 VIS not applicable for this client. Outcome: 10:19 Discharge ordered by . rashawn 10:45 Discharged to home ambulatory, kj2 10:45 Condition: stable 10:45 Discharge instructions given to patient, Instructed on discharge instructions, follow up and referral plans. medication usage, Demonstrated understanding of instructions, follow-up care, medications, Prescriptions given X 4, 10:47 Patient left the ED. kj2 Signatures: Andrew Roe MD MD cha Rivera, Mary, Godfrey Reg mr Dania Ling, RN RN Marilee Schuster, SHARRON RN kj2
--- NOTE | 2024-01-29 10:19 | EDPHYS ---
Physician Documentation [facility] Name: Susu Jacques Age: 23 yrs Sex: Female : 2000 Arrival Date: 01/29/2024 Time: 08:25 Bed 14 Private MD: ED Physician Andrew Roe HPI: 01/28 10:12 This 23 yrs old Female presents to ER via Ambulatory with complaints of Flu rashawn Symptoms. 10:12 The patient has shortness of breath at rest, with light activity. Onset: The rashawn symptoms/episode began/occurred 2 day(s) ago. Duration: The symptoms are continuous, and are steadily getting worse. The patient's shortness of breath has no apparent modifying factors. The patient or guardian reports cough, flu symptoms, arthralgias, low-grade fever, myalgias. Modifying factors: The symptoms are alleviated by nothing. the symptoms are aggravated by nothing. Associated signs and symptoms: Pertinent positives: non-productive cough. Severity of symptoms: At their worst the symptoms were mild in the emergency department the symptoms are unchanged. Associated signs and symptoms: Pertinent positives: fever, nausea, rhinorrhea, sore throat. The patient has experienced similar episodes in the past, a few times. 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 - Infectious Disease History:: Denies. - Social history:: Smoking status: Patient denies any tobacco usage or history of. - Family history:: not pertinent. ROS: 10:12 Constitutional: Negative for fever, chills, and weight loss, Eyes: Negative for injury, rashawn pain, redness, and discharge, ENT: Negative for injury, pain, and discharge, Neck: Negative for injury, pain, and swelling, Cardiovascular: Negative for chest pain, palpitations, and edema, Abdomen/GI: Negative for abdominal pain, nausea, vomiting, diarrhea, and constipation, Back: Negative for injury and pain, : Negative for injury, bleeding, discharge, and swelling, MS/Extremity: Negative for injury and deformity, Skin: Negative for injury, rash, and discoloration, Neuro: Negative for headache, weakness, numbness, tingling, and seizure, Psych: Negative for depression, anxiety, suicide ideation, homicidal ideation, and hallucinations, Allergy/Immunology: Negative for hives, rash, and allergies, Endocrine: Negative for neck swelling, polydipsia, polyuria, polyphagia, and marked weight changes, Hematologic/Lymphatic: Negative for swollen nodes, abnormal bleeding, and unusual bruising, 10:12 Respiratory: Positive for cough, Exam: 10:12 Constitutional: This is a well developed, well nourished patient who is awake, alert, rashawn and in no acute distress. Head/Face: Normocephalic, atraumatic. Eyes: Pupils equal round and reactive to light, extra-ocular motions intact. Lids and lashes normal. Conjunctiva and sclera are non-icteric and not injected. Cornea within normal limits. Periorbital areas with no swelling, redness, or edema. ENT: Nares patent. No nasal discharge, no septal abnormalities noted. Tympanic membranes are normal and external auditory canals are clear. Oropharynx with no redness, swelling, or masses, exudates, or evidence of obstruction, uvula midline. Mucous membranes moist. Neck: Trachea midline, no thyromegaly or masses palpated, and no cervical lymphadenopathy. Supple, full range of motion without nuchal rigidity, or vertebral point tenderness. No Meningismus. Chest/axilla: Normal chest wall appearance and motion. Nontender with no deformity. No lesions are appreciated. Cardiovascular: Regular rate and rhythm with a normal S1 and S2. No gallops, murmurs, or rubs. Normal PMI, no JVD. No pulse deficits. Respiratory: Lungs have equal breath sounds bilaterally, clear to auscultation and percussion. No rales, rhonchi or wheezes noted. No increased work of breathing, no retractions or nasal flaring. Abdomen/GI: Soft, non-tender, with normal bowel sounds. No distension or tympany. No guarding or rebound. No evidence of tenderness throughout. Back: No spinal tenderness. No costovertebral tenderness. Full range of motion. Skin: Warm, dry with normal turgor. Normal color with no rashes, no lesions, and no evidence of cellulitis. MS/ Extremity: Pulses equal, no cyanosis. Neurovascular intact. Full, normal range of motion. Neuro: Awake and alert, GCS 15, oriented to person, place, time, and situation. Cranial nerves II-XII grossly intact. Motor strength 5/5 in all extremities. Sensory grossly intact. Cerebellar exam normal. Normal gait. Psych: Awake, alert, with orientation to person, place and time. Behavior, mood, and affect are within normal limits. 10:12 Musculoskeletal/extremity: DVT Exam: No signs of deep vein thrombosis. no pain, no swelling, no tenderness, negative Homans' sign noted on exam, no appreciated bluish discoloration, no erythema, no increased warmth, Vital Signs: 08:32 BP 179 / 95; Pulse 88; Resp 16; Temp 98.2(O); Pulse Ox 100% on R/A; Weight 131.54 kg; hb Height 5 ft. 3 in. ; Pain 5/10; 10:46 BP 146 / 92; Pulse 80; Resp 18; Temp 98; Pulse Ox 97% on R/A; kj2 08:32 Body Mass Index 51.37 (131.54 kg, 160.02 cm) hb 08:32 Pain Scale: Adult hb MDM: 08:28 Patient medically screened. [facility] 10:17 Data reviewed: vital signs, nurses notes, lab test result(s), Flu: negative. [facility] 01/28 08:28 Order name: Flu; Complete Time: 10:12 [facility] 01/28 08:28 Order name: SARS RAPID; Complete Time: 10:11 [facility] 01/28 08:28 Order name: Strep [facility] 01/28 09:42 Order name: Throat Culture [facility] 01/28 10:11 Order name: Urinalysis w/ reflexes [facility] 01/28 10:11 Order name: PREGU [facility] 01/28 10:11 Order name: Test, Urine kj2 Administered Medications: 08:40 Drug: Acetaminophen PO 650 mg PO once Route: PO; hb 10:15 Follow up: Response: No adverse reaction; Pain is decreased kj2 10:44 Drug: AZITHromycin PO 500 mg PO once Route: PO; kj2 10:44 Follow up: Response: No adverse reaction; Medication administered at discharge. kj2 10:44 Drug: Famotidine PO 40 mg PO once Route: PO; kj2 10:44 Follow up: Response: No adverse reaction; Medication administered at discharge. kj2 Disposition Summary: 01/29/24 10:19 Discharge Ordered Notes: Location: Home [facility] Problem: new [facility] Symptoms: have improved [facility] Condition: Stable [facility] Diagnosis - Acute upper respiratory infection, unspecified [facility] - Pneumonia due to SARS-associated coronavirus [facility] Followup: [facility] - With: Private Physician - When: 2 - 3 days - Reason: Recheck today's complaints, Continuance of care, Re-evaluation by your physician Discharge Instructions: - Discharge Summary Sheet [facility] - Upper Respiratory Infection, Adult [facility] - Cool Mist Vaporizer [facility] - Upper Respiratory Infection, Adult, [id number] [facility] - Cough, Adult, Dyjo-ai-Hner [facility] - Aspirin and Your Heart [facility] - Cough, Adult [facility] - COVID-19 rashawn - COVID-19: What Your Test Results Mean - [facility] (02/19/2021) [facility] - Symptoms of COVID-19 - [facility] (08/13/2021) [facility] - COVID-19: Quarantine and Isolation - [facility] (08/21/2021) [facility] - COVID-19: What to Do If You Are Sick - [facility] (08/13/2021) [facility] - Stay Up to Date With Your COVID-19 Vaccines - [facility] (09/12/2021) [facility] Forms: - Medication Reconciliation Form [facility] - Antibiotic Education [facility] - Prescription Opioid Use [facility] - Patient Portal Instructions [facility] - Leadership Thank You Letter [facility] - Work release form kj2 Prescriptions: - Paxlovid 300 mg (150 mg x 2)-100 mg Oral Tablet, Dose Pack - take 3 capsule ORAL route 2 times per day take TWO 150 mg tablets of [facility] nirmatrelvir with ONE 100 mg tablet of ritonavir twice daily for 5 days; 30 capsule; Refills: 0, Product Selection Permitted - Pepcid 40 mg Oral tablet - take 1 tablet ORAL route once daily for 21 days; 21 tablet; Refills: 0, Product [facility] Selection Permitted - Tessalon Perles 100 mg Oral capsule - take 2 capsule ORAL route every 8 hours As needed; 30 capsule; Refills: 0, [facility] Product Selection Permitted - Zithromax 500 mg Oral tablet - take 1 tablet ORAL route once daily for 4 days begin 01/30/24; 4 tablet; Refills: rashawn 0, Product Selection Permitted Signatures: Dispatcher [employer] Anrdew Calix MD MD cha Baxter, Heather RN RN Marilee Schuster, RN RN kj2
[2024-01-29 10:33] LABS: Specific Gravity 1.007 (1.005-1.030)
[2024-01-29 10:34] LABS: Specific Gravity 1.007 (1.005-1.030); Sqamous Epithelial <5 /HPF (None Seen); Urine Bacteria <20 /HPF (<20); Urine Bilirubin NEGATIVE (Negative); Urine Blood Negative (Negative); Urine Clarity Turbid (Clear); Urine Color Colorless (Yellow); Urine Culture Reflex Order NOT NEEDED; Urine Glucose NEGATIVE (Negative); Urine Ketones NEGATIVE (Negative); Urine Microscopic Reflex YN ORDER UMIC; Urine Nitrite NEGATIVE (Negative); Urine Protein NEGATIVE (Negative); Urine RBC <5 /HPF (None Seen); Urine Urobilinogen Normal (Normal); Urine WBC <5 /HPF (<5)
[2024-01-29] MEDS ORDERED: FAMOTIDINE 20 MG TAB ONE (10:38)
[2024-01-29] MEDS ORDERED: AZITHROMYCIN 250 MG TAB ONE (10:38)
[2024-01-29 10:53] VITALS: BP 146/92; TEMP 98; O2SAT 97
== END 2024-01-29 10:47 | disposition home or self-care (01) ==
LOC: ER 08:25
DX: U07.1 COVID-19 (principal); J12.82 Pneumonia due to coronavirus disease 2019; J06.9 Acute upper respiratory infection, unspecified
CPT/HCPCS: 36415; 81001; 81025; 87070; 87081; 87804; 87811; 99284

== ENCOUNTER 2024-01-30 12:39 | Emergency (ER) | payer SELFPAY ==
[2024-01-30 14:26] LABS: Absolute Eosinophils 0.1 K/uL (0-0.5); Absolute Lymphocytes (CBC) 1.7 K/uL (0.7-4.9); Absolute Monocytes 0.8 K/uL (0.1-1.3); Absolute Neutrophil 1.5 K/uL (1.8-8.0); Basophils % 0.8 % (0-1.3); Eosinophils % 1.7 % (0-4.4); Hematocrit 42.3 % (36.0-45.0); Hemoglobin 13.7 g/dL (12.0-15.0); Lymphocytes % 40.9 % (15.3-44.8); MCH 27.7 pg (27.0-35.0); MCHC 32.5 g/dL (32.0-36.0); MCV 85.3 fL (80-100); MPV 8.5 fL (7.6-11.3); Monocytes % 18.9 % (3.3-12.3); Neutrophils % 37.7 % (41.7-73.7); Platelets 335 thou/uL (152-406); RBC Red Blood Cell Count 4.96 M/uL (3.86-4.86); Red Cell Distribution Width 14.9 % (12.1-15.2)
--- NOTE | 2024-01-30 14:40 | RAD REPORT ---
EXAM DESCRIPTION: RAD - Chest Pa And Lat (2 Views) - 01/30/2024 2:33 pm CLINICAL HISTORY: Cough;Chest pain COMPARISON: No comparisons TECHNIQUE: PA and lateral views of the chest were obtained. FINDINGS: The lungs are clear. Heart size is normal and central vasculature is within normal limits. No pleural effusion or pneumothorax seen. No acute bony finding noted. IMPRESSION: No acute cardiopulmonary process.
[2024-01-30 14:57] LABS: ALT/SGPT 34 U/L (13-56); AST/SGOT 19 U/L (15-37); Albumin 3.2 g/dL (3.4-5.0); Albumin/Globulin Ratio 0.8 (1.1-1.8); Alkaline Phosphatase 90 U/L (45-117); Anion Gap 7.2 mEq/L (5.0-15.0); BUN Blood Urea Nitrogen 8 mg/dL (7-18); Bicarbonate 28 mEq/L (21-32); Bilirubin Total 0.2 mg/dL (0.2-1.0); Globulin 4.2 g/dL (2.3-3.5); Glomerular Filtration Rate 135 ml/min (=/>90); Glucose Level 85 mg/dL (74-106); Magnesium 2.3 mg/dL (1.6-2.4); NT PRO-BNP 8 pg/mL (<125); Potassium 3.2 mEq/L (3.5-5.1); Protein, Total 7.4 g/dL (6.4-8.2); Sodium Level 140 mEq/L (136-145)
[2024-01-30 14:58] LABS: Bilirubin Direct < 0.2 mg/dL (0-0.2)
[2024-01-30] MEDS ORDERED: KETOROLAC 30 MG/ML INJ ONE (16:58)
[2024-01-30] MEDS ORDERED: HYDROCODONE/CHLORPHEN 5 ML/OSYR ONE (16:58)
[2024-01-30] MEDS ORDERED: NA CHLORIDE 0.9% 1,000 ML ONE (16:59)
--- NOTE | 2024-01-30 17:27 | EDPHYS ---
Physician Documentation [facility] Name: Susu Jacques Age: 23 yrs Sex: Female : 2000 Arrival Date: 01/30/2024 Time: 12:39 Bed 12 Private MD: ED Physician Andrew Roe HPI: 01/29 13:50 This 23 yrs old Female presents to ER via Ambulatory with complaints of Flu cp Symptoms, Chest Congestion. 13:50 The patient or guardian reports chest pain that is located primarily in the anterior cp chest wall, bilaterally. 13:50 The pain does not radiate. Duration: The patient or guardian reports a single episode, cp that is still ongoing. Severity of pain: in the emergency department the pain is unchanged despite home interventions. Patient returns to ED after being seen yesterday for cough and being diagnosed with COVID. 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 - Infectious Disease History:: Denies. - Social history:: Smoking status: Patient denies any tobacco usage or history of. ROS: 13:55 Constitutional: Negative for body aches, chills, fever, poor PO intake, cp 13:55 Eyes: Negative for injury, pain, redness, and discharge, cp 13:55 ENT: Negative for drainage from ear(s), ear pain, sore throat, difficulty swallowing, difficulty handling secretions, 13:55 Cardiovascular: Positive for chest pain, Negative for edema, palpitations, 13:55 Respiratory: Positive for cough, shortness of breath, 13:55 Abdomen/GI: Negative for abdominal pain, vomiting, diarrhea, constipation, 13:55 Neuro: Negative for altered mental status, dizziness, headache, syncope, weakness, 13:55 All other systems are negative, Exam: 14:00 Constitutional: The patient appears in no acute distress, alert, awake, cp non-diaphoretic, non-toxic, well developed, well nourished, obese, 14:00 Head/Face: Normocephalic, atraumatic. cp 14:00 Eyes: Periorbital structures: appear normal, Conjunctiva: normal, no exudate, no injection, Sclera: no appreciated abnormality, Lids and lashes: appear normal, bilaterally, 14:00 ENT: External ear(s): are unremarkable, Ear canal(s): are normal, clear, TM's: dullness, bilaterally, Nose: is normal, Mouth: Lips: moist, Oral mucosa: pink and intact, moist, Posterior pharynx: is normal, airway is patent, no erythema, no exudate, 14:00 Neck: ROM/movement: is normal, is supple, without pain, no range of motions limitations, 14:00 Chest/axilla: Inspection: normal, 14:00 Cardiovascular: Rate: normal, 14:00 Respiratory: the patient does not display signs of respiratory distress, Respirations: normal, no use of accessory muscles, no retractions, labored breathing, is not present, Breath sounds: are clear throughout, no decreased breath sounds, no stridor, no wheezing, 14:00 Abdomen/GI: Inspection: abdomen appears normal, Palpation: abdomen is soft and non-tender, in all quadrants, 14:00 Back: pain, is absent, ROM is normal, 14:00 Neuro: Orientation: to person, place \T\ time. Mentation: is normal, Motor: moves all fours, strength is normal, Sensation: is normal, Vital Signs: 12:48 BP 107 / 66; Pulse 90; Resp 18; Temp 98.4(O); Pulse Ox 98% ; Weight 131.54 kg; Height 5 db ft. 3 in. ; Pain 6/10; 15:11 BP 118 / 68; Pulse 88; Resp 16; Pulse Ox 99% ; hb 12:48 Body Mass Index 51.37 (131.54 kg, 160.02 cm) db 12:48 Pain Scale: Adult db MDM: 13:34 Patient medically screened. cp 17:26 Data reviewed: vital signs, nurses notes, lab test result(s), EKG, radiologic studies, cp plain films, and as a result, I will discharge patient. 17:26 Differential diagnosis: acute myocardial infarction, cholecystitis, Cholelithiasis cp costochondritis, pleurisy, pneumonia, pneumothorax, pulmonary embolus. I considered the following discharge prescriptions or medication management in the emergency department Medications were administered in the Emergency Department. See MAR. Counseling: I had a detailed discussion with the patient and/or guardian regarding the historical points, exam findings, and any diagnostic results supporting the discharge/admit diagnosis, lab results, radiology results, to return to the emergency department if symptoms worsen or persist or if there are any questions or concerns that arise at home. Response to treatment: the patient's symptoms have markedly improved after treatment, and as a result, I will discharge patient. Special discussion: Based on the patient's history, exam, and Dx evaluation, there is no indication for emergent intervention or inpatient Tx. It is understood by the patient/guardian that if the Sx's persist or worsen they need to return immediately for re-evaluation. 01/29 13:47 Order name: Basic Metabolic Panel; Complete Time: 16:04 cp 01/29 16:33 Interpretation: Normal except: K 3.2; CL 108; CRE 0.51; CA 8.2. cp 01/29 13:47 Order name: CBC with Diff; Complete Time: 16:04 cp 01/29 13:47 Order name: LFT's; Complete Time: 16:04 cp 01/29 13:47 Order name: Magnesium; Complete Time: 16:04 cp 01/29 13:47 Order name: NT PRO-BNP; Complete Time: 16:04 cp 01/29 13:47 Order name: Troponin HS; Complete Time: 16:04 cp 01/29 13:47 Order name: XRAY Chest Pa And Lat (2 Views); Complete Time: 16:04 cp 01/29 13:47 Order name: Cardiac monitoring; Complete Time: 14:46 cp 01/29 13:47 Order name: EKG - Nurse/Tech; Complete Time: 14:46 cp 01/29 13:47 Order name: IV Saline Lock; Complete Time: 14:18 cp 01/29 13:47 Order name: Labs collected and sent; Complete Time: 14:18 cp 01/29 13:47 Order name: O2 Per Protocol; Complete Time: 14:46 cp 01/29 13:47 Order name: O2 Sat Monitoring; Complete Time: 14:46 cp Administered Medications: 17:04 Drug: Ketorolac IVP 30 mg IVP once Route: IVP; Site: left antecubital; hb 17:15 Follow up: Response: No adverse reaction hb 17:04 Drug: NS 0.9% IV 1000 ml IV at 1 bolus Per protocol; 1000 mL bolus Route: IV; Rate: 1 hb bolus; Site: left antecubital; 18:00 Follow up: Response: No adverse reaction; IV Status: Completed infusion; IV Intake: hb 1000ml 17:04 Drug: Tussionex Pennkinetic ER PO Suspension 5 ml PO once Route: PO; hb 18:00 Follow up: Response: No adverse reaction hb Disposition Summary: 01/30/24 17:27 Discharge Ordered Notes: Location: Home cp Problem: new cp Symptoms: have improved cp Condition: Stable cp Diagnosis - SARS-associated coronavirus as the cause of diseases classified elsewhere cp - Chest pain, unspecified cp - Shortness of breath cp Followup: cp - With: Private Physician - When: 2 - 3 days - Reason: Worsening of condition Discharge Instructions: - Discharge Summary Sheet cp - Nonspecific Chest Pain, Adult cp - Shortness of Breath, Adult cp - Aspirin and Your Heart cp - COVID-19 cp - How to Protect Yourself and Others - [facility] [place] (07/19/2021) cp - 10 Things You Can Do to Manage Your COVID-19 Symptoms at Home - [facility] [place] (12/07/2020) cp - COVID-19: Quarantine and Isolation - [facility] [place] (08/21/2021) cp - COVID-19: What to Do If You Are Sick - [facility] [place] (08/13/2021) cp Forms: - Medication Reconciliation Form cp - Antibiotic Education cp - Prescription Opioid Use cp - Patient Portal Instructions cp - Leadership Thank You Letter cp - Work release form eb Prescriptions: - Bromfed DM 2-30-10 mg/5 mL Oral syrup - administer 10 milliliter ORAL route every 6 hours as needed for cold symptoms; cp 240 milliliter; Refills: 0, Product Selection Permitted - Ibuprofen 800 mg Oral Tablet - take 1 tablet ORAL route every 8 hours As needed take with food; 30 tablet; cp Refills: 0, Product Selection Permitted Addendum: 02/06/2024 15:40 Co-signature as Attending Physician, Andrew Roe MD I agree with the assessment and c marcus plan of care. Signatures: Dispatcher [employer] Andrew Calix MD MD cha Page, Corey, PA PA cp Dania Ling, SHARRON RN Adina Mitchell RN RN db Corrections: (The following items were deleted from the chart) 01/29 13:48 13:48 Chest Pa And Lat (2 Views)+[email or web address] ordered. EDMS EDMS
--- NOTE | 2024-01-30 17:27 | ER ---
Nurse's Notes [facility] Name: Susu Jacques Age: 23 yrs Sex: Female : 2000 Arrival Date: 01/30/2024 Time: 12:39 Bed 12 Private MD: Diagnosis: SARS-associated coronavirus as the cause of diseases classified elsewhere;Chest pain, unspecified;Shortness of breath Presentation: 01/29 12:48 Chief complaint: Chief complaint: Patient states: YESTERDAY DIAGNOSED WITH COVID. TODAY db HAS INCREASED SOB WITH SOME CHEST PAIN AND COUGH. 12:48 Coronavirus screen: Client denies travel out of the [place] in the last 14 days. At this db time, the client does not indicate any symptoms associated with coronavirus-19. Coronavirus screen: Client presents with at least one sign or symptom that may indicate coronavirus-19. Standard/surgical mask placed on the client. Provider contacted for isolation considerations. Ebola Screen: Patient negative for fever greater than or equal to 101.5 degrees Fahrenheit, and additional compatible Ebola Virus Disease symptoms Patient denies exposure to infectious person. Patient denies travel to an Ebola-affected area in the 21 days before illness onset. No symptoms or risks identified at this time. Initial Sepsis Screen: Does the patient meet any 2 criteria? No. Patient's initial sepsis screen is negative. Does the patient have a suspected source of infection? No. Patient's initial sepsis screen is negative. Risk Assessment: Do you want to hurt yourself or someone else? Patient reports no desire to harm self or others. Onset of symptoms was January 30, 2024. 12:48 Method Of Arrival: Ambulatory db 12:48 Acuity: BRI 3 db Triage Assessment: 12:50 General: Appears in no apparent distress. comfortable, Behavior is calm, cooperative, db appropriate for age. Pain: Complains of pain in BODY ACHES, CHEST. Neuro: Level of Consciousness is awake, alert, obeys commands, Oriented to person, place, time, situation. Respiratory: Reports pain with cough Airway is patent Respiratory effort is even, unlabored, Respiratory pattern is regular, symmetrical, Onset: The symptoms/episode began/occurred gradually, the patient has mild shortness of breath. VENIPUNCTURIST: 12:50 LMP N/A - Irregular menses, Not db Historical: - Allergies: 12:50 No Known Allergies; db - PMHx: 12:50 Migraine; db - Immunization history:: Adult Immunizations unknown. - Infectious Disease History:: Denies. - Social history:: Smoking status: Patient denies any tobacco usage or history of. Screenin:09 [facility] ED Fall Risk Assessment (Adult) History of falling in the last 3 months, hb including since admission No falls in past 3 months (0 pts) Confusion or Disorientation No (0 pts) Intoxicated or Sedated No (0 pts) Impaired Gait No (0 pts) Mobility Assist Device Used No (0 pt) Altered Elimination No (0 pt) Score/Fall Risk Level 0 - 2 = Low Risk Oriented to surroundings, Maintained a safe environment, Educated pt \T\ family on fall prevention, incl call for assistance when getting out of bed. Abuse screen: Denies threats or abuse. Denies injuries from another. Nutritional screening: No deficits noted. Tuberculosis screening: No symptoms or risk factors identified. Assessment: 15:07 General: Appears in no apparent distress. Behavior is calm, cooperative. Neuro: Level hb of Consciousness is awake, alert, obeys commands, Oriented to person, place, time, situation. Cardiovascular: Patient's skin is warm and dry. Rhythm is regular. Respiratory: Reports pain with cough Respiratory effort is even, unlabored, Respiratory pattern is regular, symmetrical. GI: No signs and/or symptoms were reported involving the gastrointestinal system. : No signs and/or symptoms were reported regarding the genitourinary system. EENT: No signs and/or symptoms were reported regarding the EENT system. Derm: Skin is pink, warm \T\ dry. Musculoskeletal: No signs and/or symptoms reported regarding the musculoskeletal system. 17:34 Reassessment: DISCHARGE PENDING COMPLETION OF IV FLUIDS. hb 18:35 Reassessment: Patient appears in no apparent distress at this time. Patient and/or hb family updated on plan of care and expected duration. Pain level reassessed. Patient is alert, oriented x 3, equal unlabored respirations, skin warm/dry/pink. Vital Signs: 12:48 BP 107 / 66; Pulse 90; Resp 18; Temp 98.4(O); Pulse Ox 98% ; Weight 131.54 kg; Height 5 db ft. 3 in. ; Pain 6/10; 15:11 BP 118 / 68; Pulse 88; Resp 16; Pulse Ox 99% ; hb 12:48 Body Mass Index 51.37 (131.54 kg, 160.02 cm) db 12:48 Pain Scale: Adult db ED Course: 12:44 Patient arrived in ED. sj2 12:50 Triage completed. db 12:50 Arm band placed on Patient placed in waiting room. db 13:34 Andrew Pabon PA is PHCP. cp 13:34 Andrew Roe MD is Attending Physician. cp 14:[address] via wheelchair. ll1 14:18 Inserted saline lock: 22 gauge in left antecubital area, using aseptic technique. Blood db collected. Flushed with 10 mL NS. 14:35 XRAY Chest Pa And Lat (2 Views) In Process Unspecified. EDMS 14:46 EKG done, by ED staff, reviewed by Andrew MITCHELL. cc6 15:07 Dania Ling, RN is Primary Nurse. hb 15:09 Patient has correct armband on for positive identification. Provided Education on: hb tests, result times, use of call light. 18:52 No provider procedures requiring assistance completed. IV discontinued, intact, hb bleeding controlled, No redness/swelling at site. Pressure dressing applied. Administered Medications: 17:04 Drug: Ketorolac IVP 30 mg IVP once Route: IVP; Site: left antecubital; hb 17:15 Follow up: Response: No adverse reaction hb 17:04 Drug: NS 0.9% IV 1000 ml IV at 1 bolus Per protocol; 1000 mL bolus Route: IV; Rate: 1 hb bolus; Site: left antecubital; 18:00 Follow up: Response: No adverse reaction; IV Status: Completed infusion; IV Intake: hb 1000ml 17:04 Drug: Tussionex Pennkinetic ER PO Suspension 5 ml PO once Route: PO; hb 18:00 Follow up: Response: No adverse reaction hb Medication: 15:09 VIS not applicable for this client. hb Intake: 18:00 IV: 1000ml; Total: 1000ml. hb Outcome: 17:27 Discharge ordered by . cp 18:52 Discharged to home ambulatory, hb 18:52 Condition: stable 18:52 Discharge instructions given to patient, Instructed on discharge instructions, follow up and referral plans. medication usage, Demonstrated understanding of instructions, follow-up care, medications, Prescriptions given X 2, 18:52 Patient left the ED. hb Signatures: Dispatcher [employer] EDMS Andrew Pabon PA PA cp Baxter, Heather RN RN Micaela Wyatt RN RN ll1 Adina Mchugh RN RN db Adelina Shaffer cc6 Flex Whitney 2 Corrections: (The following items were deleted from the chart) 12:50 12:48 Chief complaint: db db
[2024-01-30 19:16] VITALS: TEMP 98.4
[2024-01-30 19:17] VITALS: BP 118/68; O2SAT 99
--- NOTE | 2024-02-01 17:04 | EKG ---
Test Date: 2024-01-30 Test Time: 14:33:41 Workers Compensation Manager: ION MEASUREMENT RESULTS: Intervals: Rate: 84 WA: 154 QRSD: 98 QT: 376 QTc: 444 [place]: P: 35 WA: 154 QRS: 28 T: 20 INTERPRETIVE STATEMENTS: Normal sinus rhythm Normal ECG No previous ECG available for comparison Electronically Signed On 02-01-24 17:00:00 CDT by Sylvain Lomeli
== END 2024-01-30 18:52 | disposition home or self-care (01) ==
LOC: ER 12:39
DX: U07.1 COVID-19 (principal); R06.02 Shortness of breath
CPT/HCPCS: 36415; 71046; 80048; 80076; 83735; 83880; 84484; 85025; 93005; 96361; 96374; 99285; J7030

== ENCOUNTER 2024-10-08 23:32 | Emergency (ER) | payer SELFPAY ==
--- OUTSIDE RECORDS SUMMARY | 2024-10-08 23:36 | XMS REPORT | Continuity of Care Document ---
Author Name Unknown Address [address] [facility] [address] [place] [address] [facility] Address [address] [facility] [place] [address] Care Team Providers Care Cashier Manager Name Role Phone ALFREDITO CASTLE Primary Care Physician Unavail able DINO YOUNG Attending Clinician Unavail able CATALINA WELLINGTON Attending Clinician Unavailable Elaina Celaya Attending Clinician [phone] ELAINA ALEXANDER Attending Clinician Unavailable Seth DESSERT CUP MACHINE FEEDERKaren ULLOA Attending Clinician Unacelio ilable Nurse, [facility] Attending Clinician Un available Catalina Wellington MD Attending Clinician [phone] Doctor Unassigned, [place] Attending Clinician U navailable Lab, Ang - Db Attending Clinician Unavailable Pob, [facility] Lab Main Attending Clinician UnavailAL Shah Attending Clinician Unavailable Al Rico MD Attending Clinician [phone] ELDON GAVIN Attending Clinician Unavailable Eldon Childress Attending Clinician [phone] RAFAELA WEN Attending Clinician Unavailable AMISH CATALINA CAM Admitting Clinician Unavailable ELDON GAVIN Admitting Clinician Unavailable Payers Payer Name Policy Type Policy Number Effective Date Expirati on Date Source [facility] [id number] 2023 00:00:00 [facility] [id number] 2014 00:00:00 Problems Condition Name Condition Details Condition Category Status Onset Date Resolution Date Last Treatment Date Treating Clinician Comments Source Essential hypertensi on Essential hypertensi on Disease Active 2022-05 00:00: 00 [facility] Chronic migraine without aura with status migrainosu s, not intractabl e Chronic migraine without aura with status migrainosu s, not intractabl e Disease Active 02-04 00:00: 00 [facility] Paresthesi a Paresthesi a Disease Active 02-04 00:00: 00 [facility] Elevated blood pressure reading in office without diagnosis of hypertensi on Elevated blood pressure reading in office without diagnosis of hypertensi on Disease Active 02-04 00:00: 00 [facility] Encounter to establish care Encounter to establish care Disease Active 02-04 00:00: 00 [facility] Irregular menstrual cycle Irregular menstrual cycle Disease Active 12-12 00:00: 00 [facility] Left ankle pain Left ankle pain Disease Active 2014-05 00:00: 00 [facility] Obesity (disorder) Obesity (disorder) Active Problem 12/12/2018 Medical Group Problem Active 2018-12-12 22:40:44 Kyree Sousa Allergies, Adverse Reactions, Alerts Allergy Name Allergy Type Status Severity Reaction(s) Onset Date Inactive Date Treating Clinician Comments Source NO KNOWN ALLERGIE S Drug Class Active [facility] Social History Social Habit Start Date Stop Date Quantity Comments Source Gender identity [facility] Sexual orientation [facility] Alcohol intake 2023-04-06 00:00:00 2023-04-06 00:00:00 Current drinker of alcohol (finding) [facility] History of Social function 2023-02-04 00:00:00 2023-02-04 00:00:00 [facility] Alcohol Comment 2022-12-12 00:00:00 2022-12-12 00:00:00 social [facility] Exposure to SARS-CoV-2 (event) 2022-07-21 00:00:00 2022-07-31 21:50:00 Not sure [facility] Sex Assigned At 2001 00:00:00 2000 00:00:00 [facility] Smoking Status Start Date Stop Date Source Never smoked tobacco [facility] Medications Ordered Medication Name Filled Medication Name Start Date Stop Date Current Medication? Ordering Clinician Indication Dosage Frequency Signature (SIG) Comments Components Source rizatriptan 5 mg disintegrat ing tablet 08-30 00:00: 00 Yes [id number] 5mg Take 1 tablet by mouth as needed for Migraine (take one on onset of headache may repeat 1 dose 2 hrs later). May repeat in 2 hours if needed [facility] losartan 25 mg tablet 2022-05 00:00: 00 Yes [id number] 25mg Take 1 tablet by mouth in the morning. [facility] rizatriptan 5 mg disintegrat ing tablet 2022-05 00:00: 00 08-28 00:00 :00 No [id number] 5mg Take 1 tablet by mouth as needed for Migraine (take one on onset of headache may repeat 1 dose 2 hrs later). May repeat in 2 hours if needed [facility] medroxyPROG ESTERone (DEPO-PROVE RA) syringe 150 mg 2022-05 22:15: 00 04-03 21:21 :00 No [id number] 150mg [facility] rizatriptan 5 mg disintegrat ing tablet 02-04 00:00: 00 04-06 00:00 :00 No [id number] 5mg Take 1 tablet by mouth as needed for Migraine (take one on onset of headache may repeat 1 dose 2 hrs later). May repeat in 2 hours if needed [facility] medroxyPROG ESTERone (DEPO-PROVE RA) injection 150 mg 01-09 18:45: 00 01-09 17:49 :00 No [id number] 150mg [facility] miSOPROStoL 200 mcg tablet 01-09 00:00: 00 02-19 00:00 :00 No [id number] 200ug Take 1 tablet by mouth SEE-INSTRU CTIONS. Take one tab the night before and one tab the morning of procedure [facility] SUMAtriptan 50 mg tablet 12-12 09:57: 31 12-12 00:00 :00 No 50mg Take 1 tablet by mouth once now. [facility] acetaminoph en (TYLENOL) tablet 650 mg 08-01 06:00: 00 08-01 06:00 :00 No 650mg 650 mg, Oral, ONCE, 1 dose, On Thu08/01/22 at 0000, ELROY [facility] NaCl 0.9% (NS) bolus infusion 1,000 mL 08-01 04:30: 00 08-01 06:04 :00 No 1000mL at 999 mL/hr, 1,000 mL, IV Infusion, ONCE, 1 dose, On Thu07/31/22 at 2230, STAT [facility] metoclopram cortez HCl (REGLAN) injection 10 mg 08-01 04:30: 00 08-01 04:31 :00 No 10mg 10 mg, Slow IV Push, ONCE, 1 dose, On Thu07/31/22 at 2230, ELROY [facility] ondansetron 4 mg disintegrat ing tablet 07-31 00:00: 00 12-12 00:00 :00 No [id number] 4mg Take 1 tablet by mouth every 8 (eight) hours as needed for Nausea and Vomiting (N/V). [facility] ketorolac (TORADOL) injection 15 mg 11 22:30: 00 10-02 21:29 :00 No 15mg 15 mg, Slow IV Push, ONCE, 1 dose, On Thu10/02/21 at 1730, ELROY
Fa culty member approving Restricted medication : ELDON GAVIN [facility] naproxen 500 mg tablet 10-02 00:00: 00 12-12 00:00 :00 No [id number] 500mg Take 1 tablet by mouth 2 (two) times daily with meals. [facility] SUMAtriptan 50 mg tablet 1-05 09:29: 50 Yes 50mg Take 50 mg by mouth once now. [facility] RELPAX 40 mg tablet 02-11 00:00: 00 12-12 00:00 :00 No Take 1 tablet by mouth as needed (Severe headache). May repeat in 2 hours if necessary. Max 2 doses per day, 4 doses per week [facility] topiramate 50 mg tablet 10-10 00:00: 00 12-12 00:00 :00 No [id number] 50mg Take 1 tablet by mouth 2 (two) times daily. [facility] Vital Signs Vital Name Observation Time Observation Value Comments S ource Systolic blood pressure 2023-04-06 16:40:00 136 mm[Hg] [facility] Diastolic blood pressure 2023-04-06 16:40:00 88 mm[Hg] [facility] Heart rate 2023-04-06 16:40:00 68 /min [facility] Body height 2023-04-06 16:40:00 160 cm [facility] Body weight 2023-04-06 16:40:00 134.174 kg [facility] BMI 2023-04-06 16:40:00 52.40 kg/m2 [facility] Oxygen saturation in Arterial blood by Pulse oximetry 2023-04-06 16:40:00 98 /min [facility] Systolic blood pressure 2023-04-03 20:21:00 148 mm[Hg] [facility] Diastolic blood pressure 2023-04-03 20:21:00 95 mm[Hg] [facility] Heart rate 2023-04-03 20:20:00 94 /min [facility] Body temperature 2023-04-03 20:20:00 36.78 Shelli [facility] Respiratory rate 2023-04-03 20:20:00 18 /min [facility] Body height 2023-04-03 20:20:00 160 cm [facility] Body weight 2023-04-03 20:20:00 134.083 kg [facility] BMI 2023-04-03 20:20:00 52.36 kg/m2 [facility] Systolic blood pressure 2023-02-19 14:25:00 117 mm[Hg] [facility] Diastolic blood pressure 2023-02-19 14:25:00 78 mm[Hg] [facility] Heart rate 2023-02-19 14:24:00 88 /min [facility] Body temperature 2023-02-19 14:24:00 36.83 Shelli [facility] Body height 2023-02-19 14:24:00 160 cm [facility] Body weight 2023-02-19 14:24:00 133.72 kg [facility] BMI 2023-02-19 14:24:00 52.22 kg/m2 [facility] Systolic blood pressure 2023-02-04 15:17:00 128 mm[Hg] [facility] Diastolic blood pressure 2023-02-04 15:17:00 83 mm[Hg] [facility] Body height 2023-02-04 15:17:00 160 cm [facility] Body weight 2023-02-04 15:17:00 133.811 kg [facility] BMI 2023-02-04 15:17:00 52.26 kg/m2 [facility] Oxygen saturation in Arterial blood by Pulse oximetry 2023-02-04 15:17:00 98 /min [facility] Systolic blood pressure 2023-01-09 17:28:00 142 mm[Hg] [facility] Diastolic blood pressure 2023-01-09 17:28:00 87 mm[Hg] [facility] Heart rate 2023-01-09 17:27:00 68 /min [facility] Body temperature 2023-01-09 17:27:00 37.06 Shelli [facility] Respiratory rate 2023-01-09 17:27:00 16 /min [facility] Body height 2023-01-09 17:27:00 160 cm [facility] Body weight 2023-01-09 17:27:00 133.72 kg [facility] BMI 2023-01-09 17:27:00 52.22 kg/m2 [facility] Oxygen saturation in Arterial blood by Pulse oximetry 2023-01-09 17:27:00 98 /min [facility] Systolic blood pressure 2022-12-12 14:21:00 145 mm[Hg] [facility] Diastolic blood pressure 2022-12-12 14:21:00 85 mm[Hg] [facility] Heart rate 2022-12-12 14:16:00 73 /min [facility] Body temperature 2022-12-12 14:16:00 36.67 Shelli [facility] Respiratory rate 2022-12-12 14:16:00 18 /min [facility] Body height 2022-12-12 14:16:00 160 cm [facility] Body weight 2022-12-12 14:16:00 133.72 kg [facility] BMI 2022-12-12 14:16:00 52.22 kg/m2 [facility] Oxygen saturation in Arterial blood by Pulse oximetry 2022-12-12 14:16:00 98 /min [facility] Systolic blood pressure 2022-08-01 06:04:00 152 mm[Hg] [facility] Diastolic blood pressure 2022-08-01 06:04:00 110 mm[Hg] [facility] Heart rate 2022-08-01 06:04:00 98 /min [facility] Respiratory rate 2022-08-01 06:04:00 20 /min [facility] Oxygen saturation in Arterial blood by Pulse oximetry 2022-08-01 06:04:00 98 /min [facility] Body temperature 2022-08-01 03:51:00 37.39 Shelli [facility] Body height 2022-08-01 03:51:00 160 cm [facility] Body weight 2022-08-01 03:51:00 129.729 kg [facility] BMI 2022-08-01 03:51:00 50.66 kg/m2 [facility] Heart rate 2021-10-02 20:45:00 100 /min [facility] Body temperature 2021-10-02 20:45:00 37.17 Shelli [facility] Respiratory rate 2021-10-02 20:45:00 18 /min [facility] Body weight 2021-10-02 20:45:00 108.41 kg [facility] Oxygen saturation in Arterial blood by Pulse oximetry 2021-10-02 20:45:00 99 /min [place] [facility] BMI Calculated 2018-11-30 19:18:00 [facility] Weight 2018-11-30 19:18:00 [facility] Height 2018-11-30 19:18:00 161.29 cm [facility] Procedures Procedure Date / Time Performed Performing Clinician Source DISCLOSURE AND CONSENT MEDICAL & SURGICAL PROCEDURES - FEMALM 2023-02-19 05:01:00 Doctor Unassigned, [place] [facility] POCT TEST 2023-02-19 00:00:00 Catalina Wellington [facility] US PELVIS COMPLETE WITH TRANSVAGINAL 2023-01-12 18:39:54 Catalina Wellington [facility] POCT TEST 2023-01-09 00:00:00 Catalina Wellington [facility] ASSIGNMENT OF BENEFITS 2022-12-12 14:04:16 Docto r Unassigned, [place] [facility] POCT TEST 2022-08-01 05:56:00 Al Rico [facility] LIPASE 2022-08-01 04:25:00 Al Rico [facility] COMP. METABOLIC PANEL ([id number]) 2022-08-01 04:25:00 Al Rico [facility] CBC WITH DIFF 2022-08-01 04:25:00 Al Rico [facility] URINALYSIS 2022-08-01 04:25:00 Al Rico [facility] CONSENT/REFUSAL FOR DIAGNOSIS AND TREATMENT 2022-08-01 03:37:54 Doctor Unassigned, [place] [facility] CT ABDOMEN PELVIS WO CONTRAST 2021-10-02 21:46:48 Eldon Gavin [facility] COMP. METABOLIC PANEL ([id number]) 2021-10-02 21:29:00 Eldon Gavin [facility] CBC WITH DIFF 2021-10-02 21:29:00 Eldon Gavin [facility] POCT TEST 2021-10-02 20:52:00 Deniz Greco [facility] URINALYSIS 2021-10-02 20:51:00 Khang Greco [facility] CONSENT/REFUSAL FOR DIAGNOSIS AND TREATMENT 2021-10-02 20:38:16 Doctor Unassigned, [place] [facility] Encounters Start Date/Time End Date/Time Encounter Type Admission Type Attending [facility] Care Facility Care Department Encounter ID Source 2024-07-22 13:02:25 2024-07-22 13:02:25 Outpatient [facility] [id number] Mitchell Shultz 2023-09-22 09:45:00 2023-09-22 09:45:00 Outpatient R DINO YOUNG [facility] [id number] [facility] 2023-09-08 15:00:00 2023-09-08 15:00:00 Outpatient R CATALINA WELLINGTON [facility] [id number] [facility] 2023-08-29 00:00:00 2023-08-29 00:00:00 [facility] 1.2.840.114 350.1.13.10 4.2.7.2.686 [id number] [facility] 2023-07-07 10:30:00 2023-07-07 10:30:00 Outpatient ELAINA ESPINOZA [facility] [id number] [facility] 2023-07-06 10:00:00 2023-07-06 10:00:00 Outpatient R [facility] [id number] [facility] 2023-04-27 08:45:00 2023-04-27 08:45:00 Outpatient R CATALINA WELLINGTON [facility] [id number] [facility] 2023-04-07 00:00:00 2023-04-07 00:00:00 Patient Outreach Karen Ann [facility] 1.2.840.114 350.1.13.10 4.2.7.2.686 [id number] [facility] 2023-04-06 11:00:00 2023-04-06 11:04:07 Outpatient R BENJAMIN ELAINA [facility] [id number] [facility] 2023-04-06 11:00:00 2023-04-06 11:04:07 Office Visit Benjamin Elaina [facility] 1..840.114 350..13.10 4.2.7.2.686 [id number] [facility] 2023-04-03 14:00:00 2023-04-03 14:23:39 Outpatient R CATALINA WELLINGTON [facility] [id number] [facility] 2023-04-03 14:00:00 2023-04-03 14:23:39 Nurse Visit Nurse, [facility] Amish Catalina [facility] 1..840.114 350..13.10 4.2.7.2.686 [id number] [facility] 2023-02-19 09:00:00 2023-02-19 09:45:32 Outpatient R CATALINA WELLINGTON [facility] [id number] [facility] 2023-02-19 09:00:00 2023-02-19 09:45:32 Office Visit Amish Catalina [facility] 1..840.114 350..13.10 4.2.7.2.686 [id number] [facility] 2023-02-19 00:00:00 2023-02-19 00:00:00 Orders Only Doctor Unassigned, [place] [facility] 1.2114 350.1.13.10 4.2.7.2.686 [id number] [facility] 2023-02-04 11:00:00 2023-02-04 11:15:00 Health Information Specialist Visit Lab, Toni Alexander Elaina [facility]DORIANReese [facility] 1.84.114 350.1.13.10 4.2.7.2.686 [id number] [facility] 2023-02-04 10:00:00 2023-02-04 10:38:16 Outpatient R ELAINA ALEXANDER [facility] [id number] [facility] 2023-02-04 10:00:00 2023-02-04 10:38:16 Office Visit Benjamin Elaina [facility] 1.84.114 350.1.13.10 4.2.7.2.686 [id number] [facility] 2023-02-04 00:00:00 2023-02-04 00:00:00 Patient Secure Msg Doctor Unassigned, [place] [facility] 1.2114 350.1.13.10 4.2.7.2.686 [id number] [facility] 2023-01-12 13:03:33 2023-01-12 23:59:00 Outpatient R CATALINA WELLINGTON [facility] [id number] [facility] 2023-01-12 13:03:33 2023-01-12 23:59:00 Hospital Encounter Catalina Wellington [facility] 1..114 350.1.13.10 4.2.7.2.686 [id number] [facility] 2023-01-09 12:30:00 2023-01-09 12:58:41 Outpatient R CATALINA WELLINGTON [facility] [id number] [facility] 2023-01-09 12:30:00 2023-01-09 12:58:41 Office Visit Catalina Wellington [facility] 1.840.114 350.1.13.10 4.2.7.2.686 [id number] [facility] 2022-12-17 00:00:00 2022-12-17 00:00:00 Patient Secure Msg Doctor Unassigned, [place] [facility] 1.20.114 350.1.13.10 4.2.7.2.686 [id number] [facility] 2022-12-12 11:30:00 2022-12-12 11:45:00 Health Information Specialist Visit Pob, Adc Lab Main Amish [facility] 1..114 350.1.13.10 4.2.7.2.686 [id number] [facility] 2022-12-12 11:30:00 2022-12-12 11:30:00 Outpatient R CATALINA WELLINGTON [facility] [id number] [facility] 2022-12-12 09:00:00 2022-12-12 09:46:05 Office Visit Catalina Wellington [facility] 1..114 350.1.13.10 4.2.7.2.686 [id number] [facility] 2022-12-12 00:00:00 2022-12-12 00:00:00 Orders Only Doctor Unassigned, [place] [facility] 1.0.114 350.1.13.10 4.2.7.2.686 [id number] [facility] 2022-07-31 21:54:00 2022-08-01 00:57:00 Emergency [facility] [id number] [facility] 2022-07-31 21:54:00 2022-08-01 00:57:00 Emergency Al Rico [facility] 1.2.840.114 350.1.13.10 4.2.7.2.686 [id number] [facility] 2021-10-02 15:48:00 2021-10-02 17:43:00 Emergency Iza [facility]LD[facility] GAVIN [facility] [id number] [facility] 2021-10-02 15:48:00 2021-10-02 17:43:00 Emergency Eldon Gavin R [facility] 1.2.840.114 350.1.13.10 4.2.7.2.686 [id number] [facility] 2021-10-02 00:00:00 2021-10-02 00:00:00 Orders Only Doctor Unassigned, [place] [facility] 1.2.840.114 350.1.13.10 4.2.7.2.686 [id number] [facility] 2019-05-31 10:20:00 2019-05-31 10:20:00 Outpatient MHIE MHIE [id number] Kyree Sousa 2018-12-10 04:29:30 2018-12-11 04:29:30 Between Visit nullFlavo r [facility] [id number] Kyree Sousa 2018-11-30 19:00:00 2018-12-01 04:59:59 Outpatient nullFlavo r [facility] [id number] Kyree Sousa 2017-09-28 09:00:00 2017-09-28 09:00:00 Outpatient R RAFAELA WEN [facility] [id number] [facility] Results Test Description Test Time Test Comments Results Result Co mments Source [id number] 14:29:00* Test Item Value Reference Range Interpretation Comme nts POCT PREG (test code = 1605) Negative On board controls acceptable with C Line (test code = 3574) Yes POCT PREG LOT # (test code = 3575) POCT PREG TEST DATE ( test code = 3576) [facility] [id number] 17:30:00* Test Item Value Reference Range Interpretation Comme nts POCT PREG (test code = 1605) Negative On board controls acceptable with C Line (test code = 3574) Yes POCT PREG LOT # (test code = 3575) POCT PREG TEST DATE ( test code = 3576) [facility] [id number] 17:30:00* Test Item Value Reference Range Interpretation Comme nts POCT PREG (test code = 1605) Negative On board controls acceptable with C Line (test code = 3574) Yes POCT PREG LOT # (test code = 3575) POCT PREG TEST DATE ( test code = 3576) [facility] [id number] 05:56:00* Test Item Value Reference Range Interpretation Comme nts POCT PREG (test code = 1605) negative On board controls acceptable with C Line (test code = 3574) present POCT PREG LOT # (test code = 3575) [id number] POCT PREG TEST DATE ( test code = 3576) 10/23/2023 Lab Interpretation (test cod e = 13167-7) [facility] (31349)2022-08-01 05:00:24* Test Item Value Reference Range Interpretation Comme nts NA (test code = 5278608374) 138 mmol/L 135-145 K (test code = 7209636816) 3.8 mmol/L 3.5-5.0 CL (test code = 9949987933) 104 mmol/L 98-108 CO2 TOTAL (test code = 0446970367) 26 mmol/L 23-31 AGAP (test code = 6760556327) 8 2-16 BUN (test code = 8802293027) 7 mg/dL 7-23 GLUCOSE (test code = 4885369605) 99 mg/dL 70-110 CREATININE (test code = 3598367824) 0.55 mg/dL 0.50-1.04 TOTAL BILI (test code = 8943132987) 0.6 mg/dL 0.1-1.1 CALCIUM (test code = 1892016994) 8.3 mg/dL 8.6-10.6 L T PROTEIN (test code = 0837837564) 7.5 g/dL 6.3-8.2 ALBUMIN (test code = 5812067070) 4.2 g/dL 3.5-5.0 ALK PHOS (test code = 3312279283) 87 U/L 34-122 ALTv (test code = 1742-6) 28 U/L 5-35 AST(SGOT) (test code = 5239872211) 24 U/L 13-40 eGFR (test code = 4721871772) 140.9 mL/min/1.73m2 SNEHA (test code = SNEHA) Association of [...] or abnormalities in imaging tests). Lab Interpretation (test code = 83529-5) [facility] 05:00:04* Test Item Value Reference Range Interpretation Comme nts LIPASE (test code = 5250591691) 55 U/L 0-220 Lab Interpretation (test cod e = 73414-7) [facility] [id number] 04:47:39* Test Item Value Reference Range Interpretation Comme nts WBC (test code = 6690-2) 6.47 See_Comment [[employer]ated [employer]] The system which generated this result transmitted reference range: 4.30 - 11.10 10*3/?L. The reference range was not used to interpret this result as normal/abnormal. RBC (test code = 789-8) 4.99 See_Comment [[employer]ated [employer]] The system which generated this result transmitted reference range: 3.93 - 5.25 10*6/?L. The reference range was not used to interpret this result as normal/abnormal. HGB (test code = 718-7) 14.3 g/dL 11.6-15.0 HCT (test code = 4544-3) 42.0 % 35.7-45.2 MCV (test code = 787-2) 84.2 fL 80.6-95.5 MCH (test code = 785-6) 28.7 pg 25.9-32.8 MCHC (test code = 786-4) 34.0 g/dL 31.6-35.1 RDW-SD (test code = 25100-0) 40.4 fL 39.0-49.9 RDW-CV (test code = 788-0) 13.3 % 12.0-15.5 PLT (test code = 777-3) 348 See_Comment [[employer]] The system which generated this result transmitted reference range: 166 - 358 10*3/?L. The reference range was not used to interpret this result as normal/abnormal. MPV (test code = 34912-6) 10.2 fL 9.5-12.9 NRBC/100 WBC (test code = [id number]) 0.0 See_Comment [Automated me ssage] The system which generated this result transmitted reference range: 0.0 - 10.0 /100 WBCs. The reference range was not used to interpret this result as normal/abnormal. NRBC x10^3 (test code = 3882490585) See_Comment [Automated messa ge] The system which generated this result transmitted reference range: 10*3/?L. The reference range was not used to interpret this result as normal/abnormal. GRAN MAT (NEUT) % (test code = 770-8) 69.5 % IMM GRAN % (test code = 0533872038) 0.20 % LYMPH % (test code = 736-9) 22.7 % MONO % (test code = 5905-5) 7.0 % EOS % (test code = 713-8) 0.3 % BASO % (test code = 706-2) 0.3 % GRAN MAT x10^3(ANC) (test code = 7242230997) 4.50 10*3/uL 1.88-7.09 IMM GRAN x10^3 (test code = 0762009772) 0.00-0.06 LYMPH x10^3 (test code = 731-0) 1.47 10*3/uL 1.32-3.29 MONO x10^3 (test code = 742-7) 0.45 10*3/uL 0.33-0.92 EOS x10^3 (test code = 711-2) 0.03-0.39 L BASO x10^3 (test code = 704-7) 0.01-0.07 Lab Interpretation (test code = 10398-9) [facility]85[facility]-02 22:05:15* Test Item Value Reference Range Interpretation Comme nts NA (test code = 7130810508) 140 mmol/L 135-145 K (test code = 3519275250) 4.2 mmol/L 3.5-5.0 CL (test code = 6900875754) 104 mmol/L 98-108 CO2 TOTAL (test code = 2491198402) 27 mmol/L 23-31 AGAP (test code = 0414160995) 2-16 BUN (test code = 2010485141) 9 mg/dL 7-23 GLUCOSE (test code = 7290333453) 89 mg/dL 70-110 CREATININE (test code = 5009967368) 0.59 mg/dL 0.50-1.04 TOTAL BILI (test code = 0063289089) 0.5 mg/dL 0.1-1.1 CALCIUM (test code = 6812538093) 8.7 mg/dL 8.6-10.6 T PROTEIN (test code = 6297267031) 7.6 g/dL 6.3-8.2 ALBUMIN (test code = 8323822982) 4.4 g/dL 3.5-5.0 ALK PHOS (test code = 7964598993) 93 U/L 34-122 ALTv (test code = 1742-6) 46 U/L 5-35 H AST(SGOT) (test code = 9717853198) 37 U/L 13-40 eGFR (test code = 4823820983) mL/min/1.73m2 SNEHA (test code = SNEHA) Association of [...] or abnormalities in imaging tests). Lab Interpretation (test code = 57231-4) Abnormal [facility] WITH [id number] 21:48:07* Test Item Value Reference Range Interpretation Comme nts WBC (test code = 6690-2) See_Comment [Automated [employer]] The system which generated this result transmitted reference range: 4.30 - 11.10 10*3/?L. The reference range was not used to interpret this result as normal/abnormal. RBC (test code = 789-8) See_Comment [Automated [employer]] The system which generated this result transmitted reference range: 3.93 - 5.25 10*6/?L. The reference range was not used to interpret this result as normal/abnormal. HGB (test code = 718-7) 14.2 g/dL 11.6-15.0 HCT (test code = 4544-3) 43.0 % 35.7-45.2 MCV (test code = 787-2) 83.8 fL 80.6-95.5 MCH (test code = 785-6) 27.7 pg 25.9-32.8 MCHC (test code = 786-4) 33.0 g/dL 31.6-35.1 RDW-SD (test code = 89949-1) 41.0 fL 39.0-49.9 RDW-CV (test code = 788-0) 13.3 % 12.0-15.5 PLT (test code = 777-3) See_Comment H [Automated [employer]] The system which generated this result transmitted reference range: 166 - 358 10*3/?L. The reference range was not used to interpret this result as normal/abnormal. MPV (test code = 51436-1) 10.5 fL 9.5-12.9 NRBC/100 WBC (test code = 4815541064) See_Comment [Automated [employer] ssage] The system which generated this result transmitted reference range: 0.0 - 10.0 /100 WBCs. The reference range was not used to interpret this result as normal/abnormal. NRBC x10^3 (test code = 2332174324) <0.01 See_Comment [Automated messa ge] The system which generated this result transmitted reference range: 10*3/?L. The reference range was not used to interpret this result as normal/abnormal. GRAN MAT (NEUT) % (test code = 770-8) 51.7 % IMM GRAN % (test code = 2548070843) 0.40 % LYMPH % (test code = 736-9) 36.1 % MONO % (test code = 5905-5) 9.3 % EOS % (test code = 713-8) 1.9 % BASO % (test code = 706-2) 0.6 % GRAN MAT x10^3(ANC) (test code = 7396905531) 4.07 10*3/uL 1.88-7.09 IMM GRAN x10^3 (test code = 3902522921) 0.03 10*3/uL 0.00-0.06 LYMPH x10^3 (test code = 731-0) 2.84 10*3/uL 1.32-3.29 MONO x10^3 (test code = 742-7) 0.73 10*3/uL 0.33-0.92 EOS x10^3 (test code = 711-2) 0.15 10*3/uL 0.03-0.39 BASO x10^3 (test code = 704-7) 0.05 10*3/uL 0.01-0.07 Lab Interpretation (test code = 29990-7) [id number] 20:52:00* Test Item Value Reference Range Interpretation Comme nts POCT PREG (test code = 1605) negative On board controls acceptable with C Line (test code = 3574) present POCT PREG LOT # (test code = 3575) [id number] POCT PREG TEST DATE ( test code = 3576) Lab Interpretation (test cod e = 74238-3) Normal [facility] Notes Date/Time Note Provider Source 2023-08-31 08:54:00 Images from the original note were not included. Requested Renewals rizatriptan 5 mg disintegrating tablet Sig: Take 1 tablet by mouth as needed for Migraine (take one on onset of headache may repeat 1 dose 2 hrs later). May repeat in 2 hours if needed Disp: 30 tablet Refills: 2 Start: 08/29/2023 Class: eRX Non-formulary For: Chronic migraine without aura with status migrainosus, not intractable Last ordered: 4 months ago (04/06/2023) by OSMAN May Neurology: Migraine Therapy Vkartr5808/29/2023 02:25 PM Protocol Details Valid encounter within last 12 months To be filled at: [facility]/pharmacy #[id number] - [place], [place] - [address] Recent Visits Date Type Provider Dept 04/06/23 Office Visit Elaina Alexander FNP [facility] 02/04/23 Office Visit Elaina Alexander FNP [facility] Showing recent visits within past 540 days with a meds authorizing provider and meeting all other requirements Future Appointments No visits were found meeting these conditions. Showing future appointments within next 150 days with a meds authorizing provider and meeting all other requirements Rita Garcia LVN [facility] 2023-02-04 11:00:00 Formatting of this n ote is different from the original. Images from the original note were not included. Venipuncture collection performed by clean technique on the right anticubitus. Total of 1 attempts were made. Slight pressure and a bandage/dressing were applied to the site(s). The patient experienced no complications. The following specimens were processed according to instructions and [facility] per lab order on 02/04/2023 : LT BLUE SST 3 RED LAV 1 PPT DK GREEN (LiHep) DK GREEN (SodH) RIBERA DK BLUE (K2) DK BLUE (S) ACD Blood Culture NIPT/NTD [facility] 2022-12-12 11:30:00 Formatting of this n ote is different from the original. Images from the original note were not included. Venipuncture collection performed by clean technique on the left anticubitus. Total of 1 attempts were made. Slight pressure and a bandage/dressing were applied to the site(s). The patient experienced no complications. The following specimens were processed according to instructions and [facility] per lab order on today: LT BLUE SST 3 RED LAV PPT DK GREEN (LiHep) DK GREEN (SodH) RIBERA DK BLUE (K2) DK BLUE (S) ACD Blood Culture NIPT/NTD [facility]"
[2024-10-09] MEDS ORDERED: NA CHLORIDE 0.9% 1,000 ML ONE (00:12)
[2024-10-09 00:45] LABS: Absolute Basophils 0.1 K/uL (0-0.5); Absolute Eosinophils 0.1 K/uL (0-0.5); Absolute Lymphocytes (CBC) 2.9 K/uL (0.7-4.9); Absolute Monocytes 0.6 K/uL (0.1-1.3); Absolute Neutrophil 6.7 K/uL (1.8-8.0); Basophils % 0.8 % (0-1.3); Eosinophils % 0.6 % (0-4.4); Hematocrit 40.4 % (36.0-45.0); Hemoglobin 13.7 g/dL (12.0-15.0); Lymphocytes % 28.4 % (15.3-44.8); MCHC 33.9 g/dL (32.0-36.0); MCV 82.6 fL (80-100); MPV 8.4 fL (7.6-11.3); Monocytes % 5.6 % (3.3-12.3); Neutrophils % 64.6 % (41.7-73.7); Nucleated Red Blood Cells % 0.1 % (0-0); Platelets 384 thou/uL (152-406); RBC Red Blood Cell Count 4.89 M/uL (3.86-4.86); Red Cell Distribution Width 14.8 % (12.1-15.2)
[2024-10-09 01:02] LABS: D-Dimer 0.236 FEUug/mL (0-0.500); Protime INR 1.06
[2024-10-09 01:14] LABS: Specific Gravity 1.025 (1.005-1.030); Sqamous Epithelial <5 /HPF (None Seen); Urine Bacteria None Seen /HPF (<20); Urine Bilirubin NEGATIVE (Negative); Urine Blood Trace (Negative); Urine Clarity Turbid (Clear); Urine Color Light-Yellow (Yellow); Urine Culture Reflex Order NOT NEEDED; Urine Glucose NEGATIVE (Negative); Urine Ketones TRACE (Negative); Urine Microscopic Reflex YN ORDER UMIC; Urine Mucus Slight /HPF (None Seen); Urine Nitrite NEGATIVE (Negative); Urine Protein NEGATIVE (Negative); Urine RBC <5 /HPF (None Seen); Urine Urobilinogen Normal (Normal); Urine WBC <5 /HPF (<5); Urine Yeast (Budding) Trace /HPF (None Seen); Urine pH 5.5 (5.0-7.0)
[2024-10-09 01:15] LABS: ALT/SGPT 38 U/L (13-56); AST/SGOT 13 U/L (15-37); Alkaline Phosphatase 105 U/L (45-117); Anion Gap 10.1 mEq/L (5.0-15.0); BUN Blood Urea Nitrogen 12 mg/dL (7-18); Bicarbonate 26 mEq/L (21-32); Glomerular Filtration Rate 113 ml/min (=/>90); Glucose Level 125 mg/dL (74-106); Potassium 3.1 mEq/L (3.5-5.1); Sodium Level 139 mEq/L (136-145)
[2024-10-09 01:16] LABS: Albumin 3.5 g/dL (3.4-5.0); Albumin/Globulin Ratio 0.9 (1.1-1.8); Bilirubin Total 0.3 mg/dL (0.2-1.0); Globulin 4.1 g/dL (2.3-3.5); Protein, Total 7.6 g/dL (6.4-8.2); Troponin High Sensitivity 5.5 pg/mL (<58.9)
[2024-10-09 01:25] LABS: Bilirubin Direct < 0.2 mg/dL (0-0.2); Bilirubin Indirect, Calculated 0.1 mg/dL (0.2-0.8)
--- NOTE | 2024-10-09 01:51 | RAD REPORT ---
EXAM: CT Head Without Intravenous Contrast CLINICAL HISTORY: The patient is 24 years old and is Female; Dizziness;Syncope TECHNIQUE: Axial computed tomography images of the head/brain without intravenous contrast. Sagittal and cor onal reformatted images were created and reviewed. This CT exam was performed using one or more of the following dose reduction techniques: automated exposure control, adjustment of the mA and/or kV according to patient size, and/or use of iterative reconstruction technique. COMPARISON: No relevant prior studies available. FINDINGS: BRAIN: Unremarkable. The acosta-white matter differentiation is preserved . No hemorrhage. No s ignificant white matter disease. No edema. No extra-axial fluid collections. VENTRICLES: Unremarkable. No ventriculomegaly. BONES/JOINTS: No acute fracture. SOFT TISSUES: Unremarkable. SINUSES: Unremarkable as visualized. No acute sinusitis. MASTOID AIR CELLS: Unremarkable as visualized. No mastoid effusion. ORBITS: Unremarkable as visualized. IMPRESSION: No acute intracranial findings. Electronically signed by: Jenae Pabon MD 10/09/2024 01:47 AM CDT RP Due to temporary technical issues with the PACS/NextGame reporting system, reports are being gaby d by the in-house radiologist without review as a courtesy to ensure prompt reporting the interpreting radiologist is fully responsible for the content of the report. Transcribed Date/Time: 10/09/2024 1:50 AM
--- NOTE | 2024-10-09 02:01 | RAD REPORT ---
EXAM: XR Right Knee, 3 Views CLINICAL HISTORY: The patient is 24 years old and is Female; PAIN TECHNIQUE: Three views of the right knee. COMPARISON: No relevant prior studies available. FINDINGS: BONES/JOINTS: There is no joint effusion. No acute fracture. No dislocation. SOFT TISSUES: Unremarkable. IMPRESSION: No acute findings in the right knee. Electronically signed by: Jenae Pabon MD 10/09/2024 01:44 AM CDT RP Transcribed Date/Time: 10/09/2024 2:01 AM
--- NOTE | 2024-10-09 02:02 | RAD REPORT ---
EXAM: XR Left Tibia and Fibula, 2 Views CLINICAL HISTORY: The patient is 24 years old and is Female; PAIN TECHNIQUE: Frontal and lateral views of the left tibia and fibula. COMPARISON: No relevant prior studies available. FINDINGS: BONES/JOINTS: Unremarkable. No acute fracture. No dislocation. SOFT TISSUES: Soft tissue swelling of the lower leg anteriorly is present. No radiopaque foreig n body. IMPRESSION: Soft tissue swelling of the lower leg anteriorly is present. No underlying acute bony abnormality . Electronically signed by: Jenae Pabon MD 10/09/2024 01:43 AM CDT RP Transcribed Date/Time: 10/09/2024 2:02 AM
--- NOTE | 2024-10-09 02:02 | RAD REPORT ---
EXAM: XR Chest, 1 View CLINICAL HISTORY: The patient is 24 years old and is Female; syncope TECHNIQUE: Frontal view of the chest. COMPARISON: No relevant prior studies available. FINDINGS: LUNGS: Unremarkable. No consolidation. PLEURAL SPACE: Unremarkable. No pneumothorax. HEART: Unremarkable. No cardiomegaly. MEDIASTINUM: Unremarkable. Normal mediastinal contour. BONES/JOINTS: Unremarkable. No acute fracture. UPPER ABDOMEN: Unremarkable as visualized. IMPRESSION: No acute cardiopulmonary process. Electronically signed by: Jenae Pabon MD 10/09/2024 01:43 AM CDT Transcribed Date/Time: 10/09/2024 2:01 AM
[2024-10-09] MEDS ORDERED: lisinopriL 20 MG TAB ONE (02:11)
[2024-10-09] MEDS ORDERED: HYDRALAZINE HCL 10 MG TABLET ONE (02:11)
[2024-10-09] MEDS ORDERED: POTASSIUM 25 MEQ EFFERV TAB ONE (02:12)
--- NOTE | 2024-10-09 03:13 | EDPHYS ---
Physician Documentation [facility] Name: Susu Jacques Age: 24 yrs Sex: Female : 2000 Arrival Date: 10/08/2024 Time: 23:32 Bed 10 Private MD: ED Physician Marvin Varela HPI: 10/09 00:05 This 24 yrs old Female presents to ER via Ambulatory with complaints of Fall cp Injury. 00:05 Details of fall: The patient fell from an upright position, while walking, and struck a cp tile surface. 00:05 Onset: The symptoms/episode began/occurred this afternoon. Associated injuries: The cp patient sustained injury to the head, pain, injury to the low back, pain, right knee, painful injury, left lower leg, painful injury. Patient is a 24-year-old female with past medical history significant for hypertension. She admits she does not take any medications for her hypertension. Patient comes to the emergency department after reportedly falling at work and hitting her head. Patient reports she turned and another employee reported that she may have tripped over a box but she recalls getting dizzy and then the next thing she knew she woke up on the floor. Patient complains of pain to her lower back, right knee pain and left lower leg pain. Historical: - Allergies: 10/08 23:59 No Known Allergies; br2 - Home Meds: 23:59 None [Active]; br2 - PMHx: 23:59 Hypertensive disorder; br2 - Immunization history:: Adult Immunizations up to date. - Infectious Disease History:: Denies. - Social history:: Smoking status: Patient denies any tobacco usage or history of. Patient uses alcohol, but reports only rare drinking. Patient/guardian denies using street drugs. ROS: 10/09 00:10 Constitutional: Negative for body aches, chills, fever, poor PO intake, cp 00:10 Cardiovascular: Negative for chest pain, edema, palpitations, cp 00:10 Respiratory: Negative for cough, shortness of breath, wheezing, 00:10 Abdomen/GI: Negative for abdominal pain, vomiting, diarrhea, constipation, 00:10 Neuro: Positive for syncope, Negative for altered mental status, headache, weakness, 00:10 Eyes: Negative for injury, pain, redness, and discharge, cp 00:10 Neck: Negative for pain with movement, pain at rest, stiffness, cp 00:10 Back: Positive for pain at rest, pain with movement, of the lumbar area, 00:10 All other systems are negative, Exam: 00:15 Constitutional: The patient appears in no acute distress, alert, awake, cp non-diaphoretic, non-toxic, well developed, well nourished, obese, 00:15 Head/Face: Normocephalic, atraumatic. cp 00:15 Eyes: Periorbital structures: appear normal, Pupils: equal, round, and reactive to light and accomodation, Extraocular movements: intact throughout, Conjunctiva: normal, no exudate, no injection, Sclera: no appreciated abnormality, Lids and lashes: appear normal, bilaterally, 00:15 ENT: External ear(s): are unremarkable, Nose: is normal, Mouth: Lips: moist, Oral mucosa: moist, Posterior pharynx: Airway: no evidence of obstruction, patent, 00:15 Neck: C-spine: vertebral tenderness, is not appreciated, crepitus, is not appreciated, 00:15 Chest/axilla: Inspection: normal, Palpation: is normal, no crepitus, no tenderness, 00:15 Cardiovascular: Rate: normal, Rhythm: regular, Edema: ankle edema, that is mild, JVD: is not appreciated, 00:15 Respiratory: the patient does not display signs of respiratory distress, Respirations: normal, no use of accessory muscles, no retractions, labored breathing, is not present, Breath sounds: are clear throughout, no decreased breath sounds, no stridor, no wheezing, 00:15 Abdomen/GI: Inspection: obese Palpation: abdomen is soft and non-tender, in all quadrants, 00:15 Neuro: Orientation: to person, place \T\ time. Mentation: is normal, Motor: moves all fours, strength is normal, Sensation: no obvious gross deficits, Gait: is steady, at a normal pace, without difficulty, 00:36 ECG was reviewed by the Attending Physician. cp Vital Signs: 10/08 23:56 BP 161 / 125; Pulse 94; Resp 18; Temp 97.2; Pulse Ox 96% ; Weight 147.42 kg; Height 5 br2 ft. 2 in. ; Pain 7/10; 10/09 03:06 BP 158 / 120; br2 10/08 23:56 Body Mass Index 59.44 (147.42 kg, 157.48 cm) br2 10/08 23:56 Pain Scale: Adult br2 MDM: 10/08 23:59 Medical Screening Exam initiated cp 10/09 03:10 Data reviewed: vital signs, nurses notes, lab test result(s), EKG, radiologic studies, cp CT scan, plain films, and as a result, I will discharge patient. 03:10 Differential diagnosis: closed head injury, contusion, fracture, laceration, multiple cp trauma. Consideration of Admission/Observation Escalation of care including admission/observation considered. I considered the following discharge prescriptions or medication management in the emergency department Medications were administered in the Emergency Department. See MAR. Independent interpretation of the following test(s) in the Emergency Department EKG: See my EKG interpretation above. Care significantly affected by the following chronic conditions: Hypertension, Obesity. Counseling: I had a detailed discussion with the patient and/or guardian regarding the historical points, exam findings, and any diagnostic results supporting the discharge/admit diagnosis, the presence of at least one elevated blood pressure reading (>120/80) during this emergency department visit, lab results, radiology results, the need for outpatient follow up, for definitive care, a family practitioner, to return to the emergency department if symptoms worsen or persist or if there are any questions or concerns that arise at home. Response to treatment: the patient's symptoms have mildly improved after treatment, and as a result, I will discharge patient. 10/09 00:01 Order name: Basic Metabolic Panel; Complete Time: :44 cp 10/09 01:44 Interpretation: Normal except: K 3.1; GLUC 125; CA 8.4. cp 10/09 00:01 Order name: CBC with Diff; Complete Time: :44 cp 10/09 00:01 Order name: LFT's; Complete Time: :44 cp 10/09 00:01 Order name: Magnesium; Complete Time: :44 cp 10/09 00:01 Order name: PT-INR; Complete Time: :44 cp 10/09 00:01 Order name: Troponin HS; Complete Time: :44 cp 10/09 00:01 Order name: D-Dimer; Complete Time: :44 cp 10/09 02:09 Interpretation: Reviewed. 10/09 00:01 Order name: Test, Serum; Complete Time: 01:44 10/09 00:01 Order name: UA Rfx Олег Cult if indicated; Complete Time: :44 10/09 00:01 Order name: XRAY Chest (1 view) 10/09 02:07 Interpretation: Report review. 10/09 00:01 Order name: CT Head Brain wo Cont cp 10/09 02:07 Interpretation: Report reviewed. 10/09 00:01 Order name: XRAY Knee RIGHT 3 view cp 10/09 02:07 Interpretation: Report reviewed. 10/09 00:01 Order name: XRAY Tib Fib LEFT cp 10/09 02:08 Interpretation: Report reviewed. 10/09 02:10 Order name: XRAY Lumbar Spine (3 Views) 10/09 00:01 Order name: Orthostatics 10/09 00:01 Order name: Cardiac monitoring; Complete Time: 00:36 10/09 00:01 Order name: EKG - Nurse/Tech; Complete Time: 00:36 10/09 00:01 Order name: IV Saline Lock; Complete Time: 00:36 cp 10/09 00:01 Order name: Labs collected and sent; Complete Time: 00:36 10/09 00:01 Order name: O2 Per Protocol; Complete Time: 00:36 cp 10/09 00:01 Order name: O2 Sat Monitoring; Complete Time: 00:36 cp EC:36 Rate is 92 beats/min. Rhythm is regular. FL interval is normal. QRS interval is normal. cp QT interval is normal. T waves are Inverted in lead aVR. Interpreted by me. Reviewed by me. Administered Medications: 00:36 Drug: NS 0.9% IV 1000 ml IV at 1000 ml once; to be given as a bolus over 60 minutes br2 Route: IV; Rate: 1000 ml; Site: right antecubital; 01:40 Follow up: Response: No adverse reaction; IV Status: Completed infusion; IV Intake: br2 1000ml 01:46 CANCELLED (Physician Discretion): hydralazine5 mg IVP once cp 02:36 Drug: Lisinopril PO 20 mg PO once Route: PO; br2 03:18 Follow up: Response: No adverse reaction br2 02:36 Drug: hydrALAZINE IVP 10 mg IVP once; if systolic pressure >160 Route: IVP; Site: right br2 antecubital; 03:18 Follow up: Response: No adverse reaction br2 02:36 Drug: Potassium PO Effervescent Tablet 50 mEq PO once; dissolve in 4 ounces of water or br2 juice Route: PO; 03:18 Follow up: Response: No adverse reaction br2 Disposition: 06:03 Co-signature as Attending Physician, Marvin Varela MD I reviewed the patient's care rt provided by the Advanced Practice Provider and agree with the diagnosis and treatment plan. 10/10 00:46 Chart complete. cp Disposition Summary: 10/09/24 03:11 Discharge Ordered Notes: Location: Home cp Problem: new cp Symptoms: have improved cp Condition: Stable cp Diagnosis - Syncope cp - Hypertensive heart disease without heart failure cp - Low back pain cp - Contusion of left lower leg, initial encounter cp - Pain in right knee cp Followup: cp - With: Private Physician - When: 5 - 6 days - Reason: Recheck today's complaints, blood pressure Discharge Instructions: - Discharge Summary Sheet cp - Acute Back Pain, Adult cp - Contusion cp - Hypertension, Adult cp - Musculoskeletal Pain cp - Acute Knee Pain, Adult cp - Form - Blood Pressure Record Sheet cp - How to Take Your Blood Pressure cp Forms: - Medication Reconciliation Form cp - Antibiotic Education cp - Prescription Opioid Use cp - Patient Portal Instructions cp - Leadership Thank You Letter cp Prescriptions: - Lisinopril 20 mg Oral tablet - take 1 tablet ORAL route once daily; 30 tablet; Refills: 0, Product Selection cp Permitted - Cyclobenzaprine 10 mg Oral Tablet - take 1 tablet ORAL route every 8 hours As needed; 30 tablet; Refills: 0, cp Product Selection Permitted Signatures: Dispatcher [employer] EDTN Andrew Pabon PA PA cp Marvin Varela MD MD rt Carolyn Arreola RN RN br2 Corrections: (The following items were deleted from the chart) 10/09 00:02 00:02 BASIC METABOLIC PANEL+C.LAB.BRZ ordered. EDMS EDMS 00:02 00:02 CBC+H.LAB.BRZ ordered. EDMS EDMS 00:02 00:02 HEPATIC FUNCTION+C.LAB.BRZ ordered. EDMS EDMS 00:02 00:02 MAGNESIUM+C.LAB.BRZ ordered. EDMS EDMS 00:02 00:02 PROTIME (+INR)+COAG.LAB.BRZ ordered. EDMS EDMS 00:02 00:02 Troponin High Sensitivity+C.LAB.BRZ ordered. EDMS EDMS 00: 00:02 D-DIMER+COAG.LAB.BRZ ordered. EDMS EDMS 00:02 00:02 TEST, SERUM+SC.LAB.BRZ ordered. EDMS EDMS 00: 00:02 UA Rfx Олег Cult if indicated+U.LAB.BRZ ordered. EDMS EDMS 00:02 00:02 Chest Single View+RAD.RAD.BRZ ordered. EDMS EDMS 00:03 00:03 Head Brain Wo Cont+CT.RAD.BRZ ordered. EDMS EDMS 00:03 00:03 Knee Right 3 View+RAD.RAD.BRZ ordered. EDMS EDMS 00:03 00:03 Tib Fib Left+RAD.RAD.BRZ ordered. EDMS EDMS 01:46 01:45 hydrALAZINE IVP 5 mg IVP once ordered. cp cp 02:10 02:10 Lumbar Spine 3 Views+RAD.RAD.BRZ ordered. EDMS EDMS
--- NOTE | 2024-10-09 03:13 | ER ---
Nurse's Notes [facility] Name: Susu Jacques Age: 24 yrs Sex: Female : 2000 Arrival Date: 10/08/2024 Time: 23:32 Bed 10 Private MD: Diagnosis: Syncope;Hypertensive heart disease without heart failure;Low back pain;Contusion of left lower leg, initial encounter;Pain in right knee Presentation: 10/08 23:56 Chief complaint: Patient states: PT STATES SHE WAS AT WORK AND TURNED QUICKLY, BECAME br2 DIZZY AND FELL. C/O PAIN TO LOWER BACK, BILATERAL KNEES, AND LEFT LOWER LEG. Coronavirus screen: Client denies travel out of the [place] in the last 14 days. Ebola Screen: Patient denies exposure to infectious person. Initial Sepsis Screen: Does the patient meet any 2 criteria? No. Patient's initial sepsis screen is negative. Does the patient have a suspected source of infection? No. Patient's initial sepsis screen is negative. Risk Assessment: Do you want to hurt yourself or someone else? Patient reports no desire to harm self or others. Onset of symptoms was October 08, 2024 at 21:00. 23:56 Method Of Arrival: Ambulatory br2 23:56 Acuity: BRI 3 br2 Triage Assessment: 23:59 General: Appears uncomfortable, Behavior is calm, cooperative. Pain: Complains of pain br2 in back, right leg and left leg Pain currently is 9 out of 10 on a pain scale. Quality of pain is described as throbbing. Historical: - Allergies: 23:59 No Known Allergies; br2 - Home Meds: 23:59 None [Active]; br2 - PMHx: 23:59 Hypertensive disorder; br2 - Immunization history:: Adult Immunizations up to date. - Infectious Disease History:: Denies. - Social history:: Smoking status: Patient denies any tobacco usage or history of. Patient uses alcohol, but reports only rare drinking. Patient/guardian denies using street drugs. Screenin:56 [facility] ED Fall Risk Assessment (Adult) History of falling in the last 3 months, br2 including since admission No falls in past 3 months (0 pts) Confusion or Disorientation No (0 pts) Intoxicated or Sedated No (0 pts) Impaired Gait No (0 pts) Mobility Assist Device Used No (0 pt) Altered Elimination No (0 pt) Score/Fall Risk Level 0 - 2 = Low Risk Oriented to surroundings. Abuse screen: Denies threats or abuse. Denies injuries from another. Nutritional screening: No deficits noted. Tuberculosis screening: No symptoms or risk factors identified. Assessment: 23:56 Reassessment: SEE TRIAGE ASSESSMENT. br2 10/09 02:30 Reassessment: Patient states feeling better. Patient states symptoms have improved. br2 03:09 Reassessment: Patient and/or family updated on plan of care and expected duration. Pain br2 level reassessed. Patient is alert, oriented x 3, equal unlabored respirations, skin warm/dry/pink. Patient states feeling better. Patient states symptoms have improved. Vital Signs: 10/08 23:56 BP 161 / 125; Pulse 94; Resp 18; Temp 97.2; Pulse Ox 96% ; Weight 147.42 kg; Height 5 br2 ft. 2 in. ; Pain 7/10; 10/09 03:06 BP 158 / 120; br2 10/08 23:56 Body Mass Index 59.44 (147.42 kg, 157.48 cm) br2 10/08 23:56 Pain Scale: Adult br2 ED Course: 10/08 23:35 Patient arrived in ED. mr 23:36 Andrew Pabon PA is PHCP. cp 23:36 Marvin Varela MD is Attending Physician. cp 23:56 Arm band placed on right wrist. br2 23:56 Placed in gown. Bed in low position. Call light in reach. Side rails up X 1. Provided br2 Education on: PLAN OF CARE. 23:59 Triage completed. br2 10/09 00:36 Carolyn Arreola, RN is Primary Nurse. br2 00:36 Basic Metabolic Panel Sent. br2 00:36 CBC with Diff Sent. br2 00:36 LFT's Sent. br2 00:36 Magnesium Sent. br2 00:36 PT-INR Sent. br2 00:36 Troponin HS Sent. br2 00:36 Inserted saline lock: 20 gauge in right antecubital area, using aseptic technique. br2 Blood collected. Flushed with 10 mL NS. 00:53 XRAY Chest (1 view) In Process Unspecified. EDMS 00:53 XRAY Knee RIGHT 3 view In Process Unspecified. EDMS 00:53 XRAY Tib Fib LEFT In Process Unspecified. EDMS 00:55 CT Head Brain wo Cont In Process Unspecified. EDMS 02:36 XRAY Lumbar Spine (3 Views) In Process Unspecified. EDMS 03:33 IV discontinued, intact, bleeding controlled, No redness/swelling at site. Pressure br2 dressing applied. 03:33 No provider procedures requiring assistance completed. br2 Administered Medications: 00:36 Drug: NS 0.9% IV 1000 ml IV at 1000 ml once; to be given as a bolus over 60 minutes br2 Route: IV; Rate: 1000 ml; Site: right antecubital; 01:40 Follow up: Response: No adverse reaction; IV Status: Completed infusion; IV Intake: br2 1000ml 01:46 CANCELLED (Physician Discretion): hydralazine5 mg IVP once cp 02:36 Drug: Lisinopril PO 20 mg PO once Route: PO; br2 03:18 Follow up: Response: No adverse reaction br2 02:36 Drug: hydrALAZINE IVP 10 mg IVP once; if systolic pressure >160 Route: IVP; Site: right br2 antecubital; 03:18 Follow up: Response: No adverse reaction br2 02:36 Drug: Potassium PO Effervescent Tablet 50 mEq PO once; dissolve in 4 ounces of water or br2 juice Route: PO; 03:18 Follow up: Response: No adverse reaction br2 Medication: 05 23:56 VIS not applicable for this client. br2 Intake: 0518 01:40 IV: 1000ml; Total: 1000ml. br2 Outcome: 03:11 Discharge ordered by . cp 03:33 Discharged to home ambulatory, br2 03:33 Condition: improved 03:33 Discharge instructions given to patient, Instructed on discharge instructions, follow up and referral plans. Demonstrated understanding of instructions, follow-up care, medications, Prescriptions given X 2, 03:34 Patient left the ED. br2 Signatures: Dispatcher [employer] Karen Jeong, Godfrey Reg mr Andrew Pabon PA PA Carolyn Beckman, RN RN br2 Corrections: (The following items were deleted from the chart) 03:07 03:06 Reassessment: SEE TRIAGE ASSESSMENT br2 br2
--- NOTE | 2024-10-09 03:28 | RAD REPORT ---
EXAM: XR Lumbosacral Spine, 2 or 3 Views CLINICAL HISTORY: fall; Pain TECHNIQUE: Frontal and lateral views of the lumbar spine and sacrum. COMPARISON: No relevant prior studies available. FINDINGS: Vertebrae: Unremarkable. No acute fracture. Normal alignment. Sacrum/coccyx: Unremarkable as visualized. No acute fracture. Disc spaces: No acute findings. No significant narrowing. Soft tissues: Unremarkable. IMPRESSION: No acute injury. Electronically signed by: Umberto Rodriguez MD 10/09/2024 03:24 AM CDT Transcribed Date/Time: 10/09/2024 3:28 AM
[2024-10-09 04:07] VITALS: TEMP 97.2; O2SAT 96
[2024-10-09 04:17] VITALS: BP 158/120
== END 2024-10-09 03:34 | disposition home or self-care (01) ==
LOC: ER 23:32
DX: R55 Syncope and collapse (principal); S80.12XA Contusion of left lower leg, initial encounter; M54.50 Low back pain, unspecified; M25.561 Pain in right knee; I11.9 Hypertensive heart disease without heart failure
CPT/HCPCS: 36415; 70450; 71045; 72100; 80048; 80076; 81001; 83735; 84484; 84703; 85025; 85379; 85610; 93005; 96361; 96374; 99284; J7030